=== PATIENT | female | born 1965 | race Caucasian/White ===

== ENCOUNTER 2023-11-17 00:55 | Inpatient (IN) | payer BC, SELFPAY ==
[2023-11-17] VITALS (15 sets, daily range): BP systolic 107–161; BP diastolic 56–87; PULSE 59–80; RESP 16–20; TEMP 36.1–36.8; O2SAT 96–100; BMI 27.5; BMI 27.8
[2023-11-17 01:12] LABS: Appearance Urine Clear (Clear); Bilirubin Urine Negative (Negative); Blood Urine Trace-intact (Negative); Color Urine Yellow (Yellow); Glucose Urine Negative (Negative); Ketones Urine Negative (Negative); Leukocyte Esterase Urine 1+ (Negative); Nitrite Urine Negative (Negative); Protein Urine Negative (Negative); Specific Gravity Urine 1.025 (1.000-1.030); Urobilinogen Urine 0.2 (0.2-1.0)
[2023-11-17 01:20] LABS: Bacteria Urine Few; Squamous Epithelial Cell Urine Few (None-Few)
--- NOTE | 2023-11-17 01:25 | CRLHL7_ITS ---
For Patients: As a result of the Century Cures Act, medical imaging exams and procedure reports are released immediately into your electronic medical record. You may view this report before your referring provider. If you have questions, please contact your health care provider. INDICATION: Left flank pain. TECHNIQUE: CT abdomen and pelvis without contrast. COMPARISON: None. FINDINGS: Lower chest: Unremarkable. Liver: Normal in size and attenuation. No suspicious masses. Gallbladder and bile ducts: No stones or inflammation. No biliary dilatation. Pancreas: Mild inflammatory stranding about the body and tail of the pancreas. Spleen: Normal in size. No masses. Adrenal glands: Normal in size. No nodules. Kidneys: Punctate nonobstructing left nephrolith. No hydronephrosis. GI tract: Unremarkable. Normal in caliber. No sign of mass or inflammation. Normal appendix. Vasculature: Abdominal aorta is normal in caliber. Lymph nodes: No lymphadenopathy. Peritoneum/Abdominal Wall: Unremarkable. No free air or significant free fluid. Pelvis: Unremarkable. No pelvic masses. Bones: Unremarkable for age. IMPRESSION: 1. Mild acute interstitial edematous pancreatitis involving the body and tail of the pancreas. Recommend correlation with amylase and lipase. 2. Punctate nonobstructing left nephrolith. Please note that all CT scans at this facility use dose modulation, iterative reconstruction, and/or weight-based dosing when appropriate to reduce radiation dose to as low as reasonably achievable. Dictated by Pj Steward MD @ 11/17/2023 1:42:20 AM (Electronically Signed)
--- NOTE | 2023-11-17 01:26 | ED_ITS ---
HPI - General Adult General Date Seen: 11/17/23 Chief complaint: Flank Pain Stated complaint: L flank pain Time Seen by Provider: 11/17/23 00:58 Source: patient Mode of arrival: ambulatory Limitations: no limitations History of Present Illness HPI narrative: The patient is a 58-year-old female with no chronic health problems who comes in with 2-3 hours of left upper quadrant abdominal pain. She had eaten some popcorn and some licorice and was watching TV when the pain began. She had no pain earlier in the day. The pain is persisted for several hours and is too severe for her to sleep. No nausea or vomiting. No diarrhea or constipation. No fevers or chills. She has had no recent illness. She does not drink alcohol. She has been told that her lipids were high but she does not recall the numbers in no medication was offered. She has had no previous episodes like this. She does not give a history consistent with biliary colic. No dysuria, urgency, frequency. No hematuria. Related Data Home Medications ?Medication ?Instructions ?Recorded ?Confirmed No Known Home Medications 11/17/23 11/17/23 Allergies Allergy/AdvReac Type Severity Reaction Status Date / Time Penicillins Allergy Mild Hives Verified 11/17/23 01:05 Review of Systems Narrative: Review of systems is outlined above otherwise noted to be negative. [facility] Medical History (Updated 11/17/23 @ 04:20 by Francisco Ingram MD) Vitamin D deficiency ?E55.9 - Vitamin D deficiency, unspecified (ICD-10) Mild intermittent asthma ?J45.20 - Mild intermittent asthma, uncomplicated (ICD-10) Surgical History (Updated 11/17/23 @ 01:39 by Luc Palacio RN) History of colposcopy ?Z98.890 - Other specified postprocedural states (ICD-10) History of colonoscopy ?Z98.890 - Other specified postprocedural states (ICD-10) History of section ?Z98.891 - History of uterine scar from previous surgery (ICD-10) Social History What is your current living situation?: I presently have a place to live Problems where you live: no known problems Problems where you live details: NA In the past 12 months, utilities in danger of being shut off: no In past 12 months, lack of transportation kept you from medical appts, meetings, work, or getting things needed for daily living: no In the past 12 mos, have been you worried that your food would run out before you had money to buy more?: never true In the past 12 mos, the food you bought just didn't last and you didn't have money to buy more?: never true Highest level of school completed/degree received: Bachelor's degree Smoking Status: Never smoker Second hand tobacco smoke exposure: No How often do you have a drink containing alcohol: never AUDIT-C Alcohol total score: 0 Non-prescribed substance use: denies use Caffeine: Yes (1 Cup Coffee per day) How often does anyone, including family, friends and others, physically hurt you : never How often does anyone, including family, friends and others, insult or talk down to you: never How often does anyone, including family, friends and others, threaten you with harm: never How often does anyone, including family, friends and others, scream or curse at you: never service: No Exam Narrative: Exam Narrative: Vitals noted. HEENT: Conjunctiva clear. Neck is supple without adenopathy, thyromegaly, carotid bruit. Lungs: Clear to auscultation in all de leon. No wheezes, rales, rhonchi. Heart: Regular rate and rhythm without murmur. Abdomen: She has epigastric and left upper quadrant tenderness. No guarding, rigidity, rebound. Bowel sounds are normal. No palpable masses. No CVA or suprapubic tenderness. Extremities: No cyanosis or edema. Good distal pulses. Skin: No abnormalities noted of the exposed skin. Neurologic: Awake, alert, fully oriented. Neurologic exam is nonfocal. Const: Vital Signs, click to edit/add: Vital Signs - 24 hr 11/17/23 01:03 11/17/23 02:35 11/17/23 02:45 Temperature 98.0 F 98.0 F Pulse Rate [Right Pulse Oximeter] 78 72 Respiratory Rate 20 20 Blood Pressure [Ri ght Upper Arm] 161/86 H 144/70 H Pulse Oximetry 99 99 99 Oxygen Delivery Me thod Room Air Room Air Course Course ED Course: Patient was seen and examined. Labs and CT of her abdomen and pelvis is ordered. Reevaluation(s) Reevaluation #1: CBC is normal. Basic metabolic panel is normal other than a glucose of 191. She had been eating some licorice. LFTs are normal. Urinalysis shows 2-5 red cells and 5-10 white cells and few bacteria. Lipase is 6766. CT scan of the abdomen and pelvis shows an edematous pancreas but is otherwise unremarkable. Reevaluation #2: IV is established and the patient was offered morphine for pain control but declines at this time. Maintenance normal saline is started. I spoke with Dr. Marin from [facility] who kindly agrees to admit her to the hospital for further evaluation and cares. Vital Signs Vital signs: Initial Vital Signs Temperature 98.0 F 11/17/23 01:03 Temperature Source Temporal Artery Scan 11/17/23 01:03 Pulse Rate 78 11/17/23 01:03 Respiratory Rate 20 11/17/23 01:03 Blood Pressure 161/86 H 11/17/23 01:03 Blood Pressure Mean 111 H 11/17/23 01:03 Blood Pressure Position Sitting 11/17/23 01:03 Pulse Oximetry 99 11/17/23 01:03 Oxygen Delivery Method Room Air 11/17/23 01:03 Vital Signs Temperature 98.0 F 11/17/23 01:03 Pulse Rate 78 11/17/23 01:03 Respiratory Rate 20 11/17/23 01:03 Blood Pressure 161/86 H 11/17/23 01:03 Pulse Oximetry 99 11/17/23 01:03 Oxygen Delivery Method Room Air 11/17/23 01:03 Temperature 97.8 F 11/17/23 03:04 Pulse Rate 74 11/17/23 03:04 Respiratory Rate 16 11/17/23 03:15 Blood Pressure 143/76 H 11/17/23 03:04 Pulse Oximetry 100 11/17/23 03:15 Oxygen Delivery Method Room Air 11/17/23 03:15 Medical Decision Making Lab Data Labs: Lab Results 11/17/23 11/17/23 Range/Units 01:05 01:35 WBC 10.45 (4.50-11.00) K/uL RBC 4.36 (4.00-5.20) m/uL Hgb 13.2 (12.0-16.0) gm/dL Hct 40.3 (33.0-51.0) % MCV 92 (80-100) fL MCH 30 (26-34) pg MCHC 33 (32-36) gm/dL RDW Coeff of Rosemarie 12.3 (11.5-15.5) % Plt Count 208 (140-440) K/uL Neut % (Auto) 75.7 H (42.0-72.0) % Lymph % (Auto) 17.4 L (20-44) % [place] % (Auto) 3.7 (0.0-11.0) % Eos % (Auto) 2.7 (0.0-7.0) % Baso % (Auto) 0.3 (0.0-3.0) % Neut # (Auto) 7.90 H (1.7-7.0) K/uL Lymph # (Auto) 1.80 (0.90-2.90) K/uL [place] # (Auto) 0.40 (0.00-0.90) K/UL Eos # (Auto) 0.28 (0.00-0.50) K/uL Baso # (Auto) 0.03 (0.00-0.30) K/uL Abs Immat Gran (auto) 0.02 (0.00-0.30) K/uL Imm/Tot Granulo (auto) 0.2 % Sodium 139 (135-149) mmol/L Potassium 3.9 (3.6-5.1) mmol/L Chloride 104 (96-114) mmol/L Carbon Dioxide 27 (20-32) mmol/L Anion Gap 8 (7-15) mEq/L BUN 16 (7-30) mg/dL Creatinine 0.6 (0.5-1.5) mg/dL Estimated Creat Clear 86.10 Estimated GFR 103 ml/min Glucose 191 H (60-115) mg/dL Calcium 9.0 (8.4-10.6) mg/dL Total Bilirubin 0.3 (0.1-1.5) mg/dL AST 27 (12-35) U/L ALT 24 (4-35) U/L Alkaline Phosphatase 95 (40-150) U/L Total Protein 7.1 (6.0-8.3) g/dL Albumin 4.5 (3.3-5.0) g/dL Lipase 6766 H (23-300) U/L Urine Color Yellow (Yellow) Urine Appearance Clear (Clear) Urine pH 7.0 (5.0-8.5) Ur Specific [place] 1.025 (1.000-1.030) Urine Protein Negative (Negative) Urine Glucose (UA) Negative (Negative) Urine Ketones Negative (Negative) Urine Blood Trace-intact A (Negative) Urine Nitrite Negative (Negative) Urine Bilirubin Negative (Negative) Urine Urobilinogen 0.2 (0.2-1.0) Ur Leukocyte Esterase 1+ A (Negative) Urine RBC 2-5 A (0-2) Urine WBC 5-10 A (0-5) Ur Squamous Epith Cells Few (None-Few) Urine Bacteria Few A (None) Discharge Plan Discharge Clinical Impression: Acute pancreatitis Patient Disposition: Admitted As Inpatient Condition: Stable
[2023-11-17 01:44] LABS: Basophils Absolute Auto 0.03 K/uL (0.00-0.30); Basophils Percent Auto 0.3 % (0.0-3.0); Eosinophils Absolute Auto 0.28 K/uL (0.00-0.50); Eosinophils Percent Auto 2.7 % (0.0-7.0); Hematocrit 40.3 % (33.0-51.0); Hemoglobin* 13.2 gm/dL (12.0-16.0); Immature Granulocytes Abs Auto 0.02 K/uL (0.00-0.30); Immature Granulocytes Pct Auto 0.2 %; Lymphocytes Percent Auto 17.4 % (20-44); Mean Corpuscular HGB Conc 33 gm/dL (32-36); Mean Corpuscular Hemoglobin 30 pg (26-34); Mean Corpuscular Volume 92 fL (80-100); Monocytes Percent Auto 3.7 % (0.0-11.0); Neutrophils Percent Auto 75.7 % (42.0-72.0); Platelet Count* 208 K/uL (140-440); RDW Coefficient of Variation % 12.3 % (11.5-15.5); Red Blood Count 4.36 m/uL (4.00-5.20); White Blood Count* 10.45 K/uL (4.50-11.00)
[2023-11-17 01:45] LABS: Slide Review Reflex No
--- OUTSIDE RECORDS SUMMARY | 2023-11-17 01:49 | XMS_ITS | Clinical Summary ---
Author Organization [employer] [facility] [employer] [employer] [facility] Address [place], [place] [address] Care Team Providers Care Reconditioning Associate Name Role Phone Oly Rios MD Primary Care Provider [phone] Allergies Active Allergy Reactions Criticality Noted Date Comments Codeine Hives Penicillins Rash As a child Medications Medication Sig Dispensed Refills Start Date End Date Status methylPREDNISolone (MedroL) 4 mg tabletIndications:Acu te non-recurrent maxillary sinusitis,Seasonal allergic rhinitis due to other allergic trigger,Wheezing Take as directed. 21 Tablet 08/28/2021 Active azithromycin (ZITHROMAX) 250 mg tabletIndications:Acu te non-recurrent maxillary sinusitis Take 500 mg (2 tabs) by mouth on day 1, then 250 mg (1 tab) daily for days 2-5. 6 Tablet 08/28/2021 Active albuterol HFA (PRO-AIR; VENTOLIN; PROVENTIL) 90 mcg/actuation inhalerIndications:Mi ld intermittent asthma without complication Inhale 2 Puffs by mouth every 4 hours if needed for Shortness Of Breath or Wheezing. 2 Each 3 09/09/2022 Active Active Problems Problem Noted Date Diagnosed Date Routine adult health maintenance 09/11/2015 Overview: Colonoscopy 08/2015 normal repeat in 10 years Vitamin D deficiency 02/17/2011 Unspecified asthma(493.90) Resolved Problems Problem Noted Date Diagnosed Date Resolved Date Menorrhagia 02/17/2011 08/28/2015 Adjustment disorder with mix ed anxiety and depressed mood 12/20/2009 08/28/2015 Immunizations Name Administration Dates Next Due AMB Influenza, IIV3 (Age >=3 years)(Flu Clinic Only) 02/05/2011,01/27/2010 AMB Influenza, IIV4 PF (=>6 mos Flulaval,Fluzone Fluarix)(Flu Clinic Only) 03/08/2014 Influenza RIV4 (Age 18+ Year s) PRESERV FREE 12/27/2018 Influenza, IIV3 (Age 6-35 mos) 12/28/2017,2010,03/07/2009 Influenza, IIV3 (Age >=3 years) 12/12/19 13,04/11/2012,01/27/2010, 009,03/11/2006 Influenza, IIV4 01/16/2021, 0,02/15/2017, 016,01/01/2015,03/08/2014 MMR 10/16/2014,08/22/2014 Td (Age >=7 Years) 03/28/1996 Tdap 05/29/2009 Tuberculin (PPD) 12/11/2019 Zoster (Shingrix-RZV, recombinant) 06/26/2021, Family History Medical History Relation Name Comments Dementia Father Diabetes Father Cancer-colon Maternal Grandmother Cancer-breast Mother diagnosed age 69 Hyperlipidemia Mother Hypertension Mother Thyroid Disease Mother hypothyroid Other Other heart disease g randparents Cancer Paternal Grandmother melanom a Good Health Sister Relation Name Status Comments Father Maternal Grandmother Mother Other Paternal Grandmother Sister Social History Tobacco Use Types Packs/Day Years Used Date Smoking Tobacco: Never Smokeless Tobacco: Never Tobacco Cessation:Counseling Given: Yes Alcohol Use Standard Drinks/Week Comments Yes 0.8 (1 standard drink = 0.6 oz p ure alcohol) Occasional wine PHQ-2 Answer Date Recorded PHQ-2 Score 0 04/20/2019 Social Connections Answer Date Recorded Frequency of Communication with Friends and Fami ly Not on file 06/26/2021 Financial Resource Strain Answer Date R ecorded Difficulty of Paying Living Expenses Not on file 03/28/2021 Difficulty of Paying Living Expenses Not on file 03/28/2021 Sex and Gender Information Value Date Recorded Sex Assigned at Female 09/08/2022 5:57 PM CDT Gender Identity Female 09/08/2022 5:57 PM CDT Sexual Orientation Straight 09/08/2022 5: 57 PM CDT Obstetrics History Para Term AB IAB SAB Ectopic Multiple Livin g Live Births 4 3 3 Date Outcome GA Total Labor Labor/2nd/3rd Weight Sex Type Anes PTL Ariadne A1 A5 Name Clin Term Term Term Last Filed Vital Signs Vital Sign Reading Time Taken Comments Blood Pressure 154/86 08/28/2021 1:54 PM CDT Pulse 97 08/28/2021 1:54 PM CDT Temperature 37.1 ??C (98.7 ??F) 08/28/2021 1:54 PM CD T Respiratory Rate 20 08/28/2021 1:54 PM CDT Oxygen Saturation 96% 08/28/2021 1:54 PM CDT Inhaled Oxygen Concentration - - Weight 74.8 kg (165 lb) 08/28/2021 1:54 PM CDT Height 162 cm (5' 3.78) 06/26/2021 9:44 AM CDT Body Mass Index 28.52 06/26/2021 9:44 AM CDT Plan of Treatment Health Maintenance Due Date Last Done Comments HIV for age 15-65 09/25/1978 Tetanus booster 05/30/2019 05/29/2009, 03/28/1996 Depression screening for age 12+ 04/20/2020 04/20/2019, 03/03/2017, 09/15/2015 BMI (ht and wt on same day) for age 18+ 06/26/2022 06/26/2021, 05/29/2019, 04/20/2019, Additional history exists Influenza for age 50-64 11/27/2023 01/17/20 21, 12/11/2019, 12/27/2018, Additional history exists Pap test for age 21-65 04/20/2024 0, 04/20/2019, 08/28/2015, Additional history exists Mammogram for age 45-75 05/24/2024 05/24/19 24, 04/21/2022, 02/05/2021, Additional history exists Colonoscopy through age 75 09/10/2025 09/11/2015, Lipids for age 45-75 06/26/2026 06/26/2021, 04/20/2019, 08/28/2015, Additional history exists Tdap Completed 05/29/2009 Hepatitis C screening for age 18-79 Completed 04/20/2019 Zoster (shingles) series for age 50+ Completed 06/26/2021, 04/20/2019 COVID-19 vaccine series Completed 12/31/19 23, 02/02/2022, 01/26/2021, Additional history exists Pneumococcal series for age 6-64 Aged Out No longer eligible based on patient's age to complete this topic Procedures Procedure Name Priority Date/Time Associated Diagnosis Comments XR MAMMO JOEL BILAT SCREEN Routine 05/24/2023 9:15 AM [employer]GER [employer] IN[employer] Visit for screening mammogram LIPID PANEL W REFLEX MEASURED LDL Routine 06/26/2021 10:50 AM CDT Hyperlipidemia, unspecified hyperlipidemia type ANTI HCV Routine 04/20/2019 11:09 AM [employer]NAGER OF INVESTIGATIONS Encounter for hepatitis C screening test for low risk patient RETAIL OFFICE ASSOCIATE THIN PREP PAP SCREEN IMAGED Routine 04/20/2019 10:49 AM [employer]NAGER [employer] INVESTIGATIONS Cervical cancer screening from Last 3 Months or Most Recently Relevant to Health Maintenance Results * XR MAMMO JOEL BILAT SCREEN (05/24/2023 9:15 AM [employer]NAGER OF INVESTIGATIONS) Anatomical Region Laterality Modality BREASTS, Breast Left, Breast Right Bilateral Mammography Impressions 05/24/2023 10:31 AM [employer]NAGER OF INVESTIGATIONS ??There is no radiographic evidence for malignancy. ??Recommend annual mammograms. MAMMOGRAM ASSESSMENT: ??ACR 1 Negative PATIENTS: You will also receive a letter with your examination results in an easy to read format. ??If you have questions about your results, please contact your referring provider. Narrative 05/24/2023 10:31 AM MANAGER OF INVESTIGATIONS For Patients: As a result of the Century Cures Act, medical imaging exams and procedure reports are released immediately into your electronic medical record. You may view this report before your referring provider. If you have questions, please contact your health care provider. XR MAMMO JOEL BILAT SCREEN [[id number]] CLINICAL HISTORY: ??This is an asymptomatic 57 y.o. patient. INDICATION FOR EXAM: Mammogram Screening. TECHNIQUE: CC & MLO views were obtained. ??This study was evaluated with the assistance of Computer-Aided Detection. Breast Tomosynthesis was used in interpretation. COMPARISON FILM: Yes 04/21/22 [facility] 02/05/21 [facility] FINDINGS: ??The breasts have scattered areas of fibroglandular density. There are no dominant masses, suspicious micro calcifications or areas of architectural distortion. Oly Rios MD MAMMO * (ABNORMAL) LIPID PANEL W REFLEX MEASURED LDL (06/26/2021 10:50 AM CDT) CHOLESTEROL,TOTAL 256(H) 100 - 199 mg/dL 06/26/2021 5:46 PM CDT [facility] TRIGLYCERIDES 162(H) <150 mg/dL 06/26/2021 5:46 PM CDT [facility] HDL CHOLESTEROL 51 >40 mg/dL 5:46 PM CDT [facility] NON-HDL CHOLESTEROL 205(H) <145 mg/dl 06/26/2021 5:46 PM CDT [facility] CHOL/HDL RATIO 5.02(H) <4.50 06/26/2021 5:46 PM CDT [facility] LDL CHOLESTEROL 173(H) <=130 mg/dL 06/26/2021 5:46 PM CDT [facility] VLDL CHOLESTEROL 32(H) <=30 mg/dL 06/26/2021 5:46 PM CDT [facility] PROVIDER ORDERED STATUS RANDOM 06/26/2021 5:46 PM CDT [facility] Blood BLOOD SPECIMEN / Unknown Venipuncture / Unknown 06/26/2021 10:50 AM CDT 06/26/2021 10:54 AM CDT Oly Rios MD CHEMISTRY [facility] [address] [place] [address], [place] * ANTI HCV (04/20/2019 11:09 AM MANAGER OF INVESTIGATIONS) HEPATITIS C ANTIBODY Non-React sadia Non-React sadia 04/20/2019 4:36 PM MANAGER OF INVESTIGATIONS [facility] Comment:Antibodies to HCV no t detected; does not exclude the possibility of exposure to HCV. Blood BLOOD SPECIMEN / Unknown Venipuncture / Unknown 04/20/2019 11:09 AM MANAGER OF INVESTIGATIONS 04/20/2019 11:09 AM MANAGER OF INVESTIGATIONS Oly Rios MD SEND OUTS [facility] [address] [place] [address], * RETAIL OFFICE ASSOCIATE THIN PREP PAP SCREEN IMAGED (04/20/2019 10:49 AM MANAGER OF INVESTIGATIONS) Case Report Gynecologic Cytology Report ? Case: [id number] ? Authorizing Provider: ??Oly Rios MD ? Collected: ? 04/20/2019 1049 ? Ordering Location: ? [facility] ?? Received: ?04/20/2019 1111 ? Clinic ? First Screen: ?Sarah Fink ? Rescreen: ?Patito Menjivar ? Specimen: ?RETAIL OFFICE ASSOCIATE ThinPrep Vial Screening, Cervical ? 05/07/2019 10:32 AM [facility] [email or web address] LABORAT[facility] ENTRAL LABORATORY INTERPRETATION/ RESULT NEGATIVE FOR INTRAEPITHELIAL LESION OR MALIGNANCY (NIL) (none) 05/07/2019 10:32 AM [facility] [employer] [facility] IMEN ADEQUACY Satisfactory for evaluation Endocervical component present 05/07/2019 10:32 AM [email or web address] HPV REQUEST HPV and PAP 05/07/2019 10:32 AM [email or web address] Date of LMP 2014 05/07/2019 10:32 AM [email or web address] Last Pap Date 08/28/15 05/07/2019 10:32 AM [facility] [employer] [facility] ENTRAL LAB[facility]ATORY Last Pap Result NIL 0 10:32 AM [facility] [employer] [facility] EN[facility]AL [facility]ORY Abnormal Pap or [place] Bx in last 5 years No 05/07/2019 10:32 AM MANAGER OF INVESTIGATIONS [facility] [employer] [facility] Menstrual Status Postmenopausal 05/07/2019 10:32 AM [facility] [employer] [facility] ENTRAL [facility]ORY [place] Bx Done Today No 05/07/2019 10:32 AM [facility] [employer] [facility] EN[facility] Additional Information None given 05/07/2019 10:32 AM [facility] [employer] [facility] EN[facility] Comment: Cytology is screened at [employer] [facility] Central Laboratory - [address], [place] [address] and [facility] - [address], [place] [address] and [facility] - [address] [place] [address] Interpreted at [facility] Central Laboratory - [address], [place] [address] Automated Review Successful 05/07/2019 10:32 AM [facility]- [facility]AT[facility] Comment:Specimen processed s uccessfully by automated home supervisor device, [employer] Imaging System, [employer] ANCILLARY TESTING RETAIL OFFICE ASSOCIATE HPV Ordered, Please see separate report 05/07/2019 10:[address] [facility] Note The pap test is a screening technique, not a diagnostic procedure. It is used primarily to screen for squamous cancers and precursor lesions. Published studies have shown that it is subject to both false negative and false positive results. The pap test should not be used as the sole means to diagnose or exclude pre-malignant and malignant lesions. 05/07/2019 10:32 AM [facility] Other (Cervical) Non-Blood / Unknown 04/20/2019 10:49 AM MANAGER OF INVESTIGATIONS 04/20/2019 11:11 AM MANAGER OF INVESTIGATIONS Oly Rios MD PATHOLOGY/CYTOLOGY [facility] [address] [place] [address], [place] from Last 3 Months or Most Recently Relevant to Health Maintenance Care Teams Reconditioning Associate Relationship Specialty Start Date End Date Oly Rios MD [address] [place] [id number] PCP - General Family Practice 04/20/19
[2023-11-17 01:55] LABS: Albumin* 4.5 g/dL (3.3-5.0); Chloride* 104 mmol/L (96-114)
[2023-11-17 01:56] LABS: Potassium* 3.9 mmol/L (3.6-5.1); Sodium* 139 mmol/L (135-149)
[2023-11-17 01:58] LABS: Alkaline Phosphatase* 95 U/L (40-150); Anion Gap 8 mEq/L (7-15); Aspartate Amino Transferase* 27 U/L (12-35); Bilirubin Total* 0.3 mg/dL (0.1-1.5); Blood Urea Nitrogen* 16 mg/dL (7-30); Carbon Dioxide* 27 mmol/L (20-32); Creatinine* 0.6 mg/dL (0.5-1.5); Estimated Glomerular Filt Rate 103 ml/min; Total Protein* 7.1 g/dL (6.0-8.3)
[2023-11-17 01:59] LABS: Alanine Aminotransferase* 24 U/L (4-35); Glucose* 191 mg/dL (60-115)
[2023-11-17 02:20] LABS: Lipase* 6766 U/L (23-300)
--- NOTE | 2023-11-17 04:10 | W.PM.THH&P_ITS ---
Telehealth- H&P: HPI History of Present Illness Time Seen by Provider: 03:38 Date Seen: 11/17/23 Chief complaint: L flank pain Narrative: Oly Topete is seen as an Interactive Telehealth visit. 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 It radiates somewhat into her back. She felt queasy but had no vomiting. The pain progressed and till she reached her limits of tolerance and she presented to the [place] emergency room. She has had no prior episodes similarly. She has had no abdominal surgeries. She does not drink alcohol to any extent. There is no family history of pancreatitis. No history suggest biliary colic. She has had no change in her bowel habits. Is been no fevers or chills. In the emergency room she was discovered to have pancreatitis by biochemical analysis as well as by CT scan. She is being ad mitted for treatment and symptomatic control. Review of Systems Status of ROS: Reports: 10 or more systems reviewed and unremarkable except as noted in History and below PFSH [facility] Medical History (Updated 11/17/23 @ 04:20 by Francisco Ingram MD) Vitamin D deficiency ?E55.9 - Vitamin D deficiency, unspecified (ICD-10) Mild intermittent asthma ?J45.20 - Mild intermittent asthma, uncomplicated (ICD-10) Surgical History (Updated 11/17/23 @ 01:39 by Luc Palacio RN) History of colposcopy ?Z98.890 - Other specified postprocedural states (ICD-10) History of colonoscopy ?Z98.890 - Other specified postprocedural states (ICD-10) History of section ?Z98.891 - History of uterine scar from previous surgery (ICD-10) Social History What is your current living situation?: I presently have a place to live Problems where you live: no known problems Problems where you live details: NA In the past 12 months, utilities in danger of being shut off: no In past 12 months, lack of transportation kept you from medical appts, meetings, work, or getting things needed for daily living: no In the past 12 mos, have been you worried that your food would run out before you had money to buy more?: never true In the past 12 mos, the food you bought just didn't last and you didn't have money to buy more?: never true Highest level of school completed/degree received: Bachelor's degree Smoking Status: Never smoker Second hand tobacco smoke exposure: No How often do you have a drink containing alcohol: never AUDIT-C Alcohol total score: 0 Non-prescribed substance use: denies use Caffeine: Yes (1 Cup Coffee per day) How often does anyone, including family, friends and others, physically hurt you : never How often does anyone, including family, friends and others, insult or talk down to you: never How often does anyone, including family, friends and others, threaten you with harm: never How often does anyone, including family, friends and others, scream or curse at you: never service: No Meds Home Medications and Allergies Home Medications ?Medication ?Instructions ?Recorded ?Confirmed ?Type No Known Home Medications 11/17/23 11/17/23 History Allergies Allergy/AdvReac Type Severity Reaction Status Date / Time Penicillins Allergy Mild Hives Verified 11/17/23 01:05 Exam Narrative Exam Narrative: Physical Exam GENERAL: ?vital signs reviewed, well developed and nourished, in no distress HEENT: pupils are equal round and reactive to light, extraocular movements are grossly within normal limits and oral mucosa is moist.Sclera nonicteric NECK: Supple without lymphadenopathy or thyromegaly according to nursing staff examination observation HEART: Regular rate and rhythm without any rubs, murmurs, or gallops. LUNGS: Clear to auscultation bilaterally with good air movement throughout ABDOMEN: Observation from nurse assisted exam, abdomen appears soft, Normal bowel sounds. She has mild tenderness without rebound predominantly in the left upper quadrant EXTREMITIES: Strength and sensation is observed to be grossly within normal limits in the upper and lower extremities.? No focal strength deficit is observed. SKIN:? Observed warm and dry with color normal Const Vital Signs, click to edit/add: Vital Signs - 24 hr 11/17/23 01:03 11/17/23 02:35 11/17/23 02:45 Temperature 98.0 F 98.0 F Pulse Rate [Left Radial] Pulse Rate [Right Pulse Oximeter] 78 72 Respiratory Rate 20 20 Blood Pressure [Left Arm] Blood Pressure [Right Upper Arm] 161/86 H 144/70 H Pulse Oximetry 99 99 99 Oxygen Delivery Method Room Air Room Air 11/17/23 02:47 11/17/23 03:02 11/17/23 03:04 Temperature 98.0 F 97.8 F 97.8 F Pulse Rate [Left Radial] 74 74 Pulse Rate [Right Pulse Oximeter] 72 Respiratory Rate 20 16 16 Blood Pressure [Left Arm] 143/76 H 143/76 H Blood Pressure [Right Upper Arm] 144/70 H Pulse Oximetry 100 100 Oxygen Delivery Method Room Air Room Air 11/17/23 03:15 Temperature Pulse Rate [Left Radial] Pulse Rate [Right Pulse Oximeter] Respiratory Rate 16 Blood Pressure [Left Arm] Blood Pressure [Right Upper Arm] Pulse Oximetry 100 Oxygen Delivery Method Room Air Hospitalist - H&P: Result Labs Labs: Short CBC 11/17/23 Range/Units 01:35 WBC 10.45 (4.50-11.00) K/uL Hgb 13.2 (12.0-16.0) gm/dL Hct 40.3 (33.0-51.0) % Plt Count 208 (140-440) K/uL [facility] Laboratory Results - last 24 hr 11/17/23 11/17/23 01:05 01:35 WBC 10.45 RBC 4.36 Hgb 13.2 Hct 40.3 MCV 92 MCH 30 MCHC 33 RDW Coeff of Rosemarie 12.3 Plt Count 208 Neut % (Auto) 75.7 H Lymph % (Auto) 17.4 L [place] % (Auto) 3.7 Eos % (Auto) 2.7 Baso % (Auto) 0.3 Neut # (Auto) 7.90 H Lymph # (Auto) 1.80 [place] # (Auto) 0.40 Eos # (Auto) 0.28 Baso # (Auto) 0.03 Abs Immat Gran (auto) 0.02 Imm/Tot Granulo (auto) 0.2 Sodium 139 Potassium 3.9 Chloride 104 Carbon Dioxide 27 Anion Gap 8 BUN 16 Creatinine 0.6 Estimated Creat Clear 86.10 Estimated GFR 103 Glucose 191 H Calcium 9.0 Total Bilirubin 0.3 AST 27 ALT 24 Alkaline Phosphatase 95 Total Protein 7.1 Albumin 4.5 Lipase 6766 H Urine Color Yellow Urine Appearance Clear Urine pH 7.0 Ur Specific [place] 1.025 Urine Protein Negative Urine Glucose (UA) Negative Urine Ketones Negative Urine Blood Trace-intact A Urine Nitrite Negative Urine Bilirubin Negative Urine Urobilinogen 0.2 Ur Leukocyte Esterase 1+ A Urine RBC 2-5 A Urine WBC 5-10 A Ur Squamous Epith Cells Few Urine Bacteria Few A Imaging CT scan - abdomen: Radiologist's impression: CT abd pelvis IMPRESSION: 1. Mild acute interstitial edematous pancreatitis involving the body and tail of the pancreas. Recommend correlation with amylase and lipase. 2. Punctate nonobstructing left nephrolith. Please note that all CT scans at this facility use dose modulation, iterative reconstruction, and/or weight-based dosing when appropriate to reduce radiation dose to as low as reasonably achievable. Assessment and Plan Assessment and plan (1) Acute pancreatitis: Status: Acute Plan 58-year-old woman who presents with 6 hours of abdominal pain radiating to the back with some mild queasiness no fevers or chills. Laboratory data is remarkable for elevated lipase and CT imaging showed mild inflammatory changes of the pancreas. Etiology is unclear. She has no history or evidence of any biliary disease at this time however biliary micro sludge could need to be considered. Less common causes like autoimmune pancreatitis could be considered or hypertriglyceridemia. I think she warrants a triglyceride level done as an outpatient in a fasting state after the acute disease has resolved. Plan will be to admit her and keep her n.p.o. except water and use IV hydration treat her symptomatically with IV acetaminophen IV low-dose morphine and ondansetron. CODE STATUS is full. DVT prophylaxis will be enoxaparin. Total Time Spent Total Time Spent: 65 Telehealth: Statement Statement Telehealth Visit: Today's History and Physical is provided via interactive telehealth by Juvenal Del Cid MD.? Patient is located at [facility].? Provider is located at [employer].? Nursing staff assisted with the patient's exam. The visit being done today meets criteria for a telehealth visit and the patient or patient?s parent/guardian is aware the visit is a telehealth visit. Camera Start Time: 03:38 Camera End Time: 04:07
[2023-11-17] MEDS: 0.9 % SODIUM CHLORIDE 1000 ml 1,000 ML 125 ML IV (04:40)
[2023-11-17] MEDS: ONDANSETRON 2 MG/ML inj 4 MG IVP (04:40)
[2023-11-17] MEDS: ACETAMINOPHEN INJ 1,000 MG/100 ML VIAL 400 MG IVPB (04:51)
[2023-11-17] MEDS: MORPHINE 2 MG/ML inj IVP (04:55)
[2023-11-17] MEDS: LACTATED RINGERS 1000 ML 1,000 ML 150 ML IV ×3 (05:01→18:03)
--- NOTE | 2023-11-17 05:35 | PC.NURSE ---
Pt came to floor @ 0245 accompanied by . Reporting left flank pain. Up IND. Pain controlled. No N/V. Afebrile.
--- NOTE | 2023-11-17 10:59 | PM.IMPN1 ---
Progress Note: A&P Assessment and plan (1) Acute pancreatitis: Problem details: -etiology unclear; likely idiopathic -no recent alcohol, no obvious gallbladder inflammation, mass, medications, etc. -repeat labs, advance diet, pain and nausea control -at this time holding on further imaging and follow clinical course -adding IV Toradol, oral oxy and one dose of IV PPI Status: Acute Subjective Date Seen: 11/17/23 Interval history: Daily Progress Note - Hospital #: 1 CC: acute pancreatitis 24 HOUR UPDATE: pt just got to the floor 3-4 hours ago. H/P reviewed. This is a no charge visit as it is admit day. Notable Labs, Micro, Rads, Interventions: documentation reviewed Objective: calm, NAD Vitals: see above abdomen: soft. mild upper LUQ pain to palpation. Lungs: Clear. Cardiac: S1S2. Disposition/Potential discharge - Home Today I spent 50minutes seeing the patient, reviewing Expanse and EPIC notes/diagnostics, discussing the care plan with our care time that includes social work, PT/OT, pharmacy, RT, halfway and documenting my impressions and plan in the medical record. Exam Const: Vital Signs, click to edit/add: Vital Signs - 24 hr 11/17/23 01:03 11/17/23 02:35 11/17/23 02:45 Temperature 98.0 F 98.0 F Pulse Rate [Left R adial] Pulse Rate [Right Pulse Oximeter] 78 72 Respiratory Rate 20 20 Blood Pressure [Le ft Arm] Blood Pressure [Ri ght Upper Arm] 161/86 H 144/70 H Pulse Oximetry 99 99 99 Oxygen Delivery Me thod Room Air Room Air 11/17/23 02:47 11/17/23 03:02 11/17/23 03:04 Temperature 98.0 F 97.8 F 97.8 F Pulse Rate [Left R adial] 74 74 Pulse Rate [Right Pulse Oximeter] 72 Respiratory Rate 20 16 16 Blood Pressure [Le ft Arm] 143/76 H 143/76 H Blood Pressure [Ri ght Upper Arm] 144/70 H Pulse Oximetry 100 100 Oxygen Delivery Ms thod Room Air Room Air 11/17/23 03:15 11/17/23 04:51 11/17/23 05:22 Temperature 97.8 F 97.8 F Pulse Rate [Left R adial] Pulse Rate [Right Pulse Oximeter] Respiratory Rate 16 Blood Pressure [Le ft Arm] Blood Pressure [Ri ght Upper Arm] Pulse Oximetry 100 Oxygen Delivery Me thod Room Air 11/17/23 08:15 Temperature Pulse Rate [Left R adial] 74 Pulse Rate [Right Pulse Oximeter] Respiratory Rate 16 Blood Pressure [Le ft Arm] Blood Pressure [Ri ght Upper Arm] Pulse Oximetry Oxygen Delivery Me thod Labs Labs: Laboratory Results - last 24 hr 11/17/23 11/17/23 01:05 01:35 WBC 10.45 RBC 4.36 Hgb 13.2 Hct 40.3 MCV 92 MCH 30 MCHC 33 RDW Coeff of Rosemarie 12.3 Plt Count 208 Neut % (Auto) 75.7 H Lymph % (Auto) 17.4 L [place] % (Auto) 3.7 Eos % (Auto) 2.7 Baso % (Auto) 0.3 Neut # (Auto) 7.90 H Lymph # (Auto) 1.80 [place] # (Auto) 0.40 Eos # (Auto) 0.28 Baso # (Auto) 0.03 Abs Immat Gran (auto) 0.02 Imm/Tot Granulo (auto) 0.2 Sodium 139 Potassium 3.9 Chloride 104 Carbon Dioxide 27 Anion Gap 8 BUN 16 Creatinine 0.6 Estimated Creat Clear 86.10 Estimated GFR 103 Glucose 191 H Calcium 9.0 Total Bilirubin 0.3 AST 27 ALT 24 Alkaline Phosphatase 95 Total Protein 7.1 Albumin 4.5 Lipase 6766 H Urine Color Yellow Urine Appearance Clear Urine pH 7.0 Ur Specific [place] 1.025 Urine Protein Negative Urine Glucose (UA) Negative Urine Ketones Negative Urine Blood Trace-intact A Urine Nitrite Negative Urine Bilirubin Negative Urine Urobilinogen 0.2 Ur Leukocyte Esterase 1+ A Urine RBC 2-5 A Urine WBC 5-10 A Ur Squamous Epith Cells Few Urine Bacteria Few A
[2023-11-17] MEDS: PANTOPRAZOLE SODIUM 40 MG INJ IVP (11:28)
[2023-11-17] MEDS: KETOROLAC 30 MG/ML inj IVP ×2 (11:32→20:38)
[2023-11-17 14:13] LABS: HCO3 VBG 31 mmol/L (21-28); PCO2 VBG 53 mmHG (40-50); PO2 VBG < 30.1 mmHG (25-47)
[2023-11-17 14:33] LABS: Albumin* 3.7 g/dL (3.3-5.0)
[2023-11-17 14:34] LABS: Chloride* 108 mmol/L (96-114); Potassium* 4.4 mmol/L (3.6-5.1); Sodium* 139 mmol/L (135-149)
[2023-11-17 14:36] LABS: Alkaline Phosphatase* 71 U/L (40-150); Anion Gap 1 mEq/L (7-15); Aspartate Amino Transferase* 22 U/L (12-35); Bilirubin Total* 0.6 mg/dL (0.1-1.5); Blood Urea Nitrogen* 11 mg/dL (7-30); Carbon Dioxide* 30 mmol/L (20-32); Creatinine* 0.7 mg/dL (0.5-1.5); Estimated Glomerular Filt Rate 99 ml/min
[2023-11-17 14:37] LABS: Alanine Aminotransferase* 21 U/L (4-35); Calcium* 8.9 mg/dL (8.4-10.6); Cholesterol* 199 mg/dL (90-199); Glucose* 86 mg/dL (60-115); Triglycerides* 167 mg/dL (40-149)
[2023-11-17 14:38] LABS: HDL Cholesterol* 41 mg/dL (>=50); LDL Cholesterol Calculated 125 mg/dL (<100)
[2023-11-17 15:25] LABS: Lipase* 2765 U/L (23-300)
--- NOTE | 2023-11-17 15:46 | PC.NURSE ---
end of shift. pt has been very pleasant. complained of abd pain. 2--08/04. she got IV Toradol. she is up ab kim. IV is patent. she is taking in clears with no problems.
[2023-11-17] MEDS: SODIUM CHLORIDE 0.9 % (FLUSH) 10 ML SYRINGE 5 ML IVF (20:39)
[2023-11-18] MEDS: LACTATED RINGERS 1000 ML 1,000 ML 150 ML IV ×2 (00:13→06:11)
[2023-11-18] MEDS: KETOROLAC 30 MG/ML inj IVP (02:54)
[2023-11-18 03:00] VITALS: BP 117/55; PULSE 70; RESP 18; TEMP 36.3; O2SAT 97
--- NOTE | 2023-11-18 06:17 | PC.NURSE ---
End of shift report [id number]: Alert and oriented x 4, pleasant and cooperative with cares. Pain to epigastric region that spreads laterally to both sides, patient reports it as a heaviness and pressure feeling, does occasionally go into back. Pain well managed with PRN Toradol. Tolerating clear liquid diet, denies any nausea or vomiting this shift. Independent with ambulation, patient out and walking in hallway independently. Patient does report that pain increase when up and walking but does subside with rest. Patient reports that she is passing flatus.
[2023-11-18 06:56] LABS: Hematocrit 36.2 % (33.0-51.0); Hemoglobin* 11.9 gm/dL (12.0-16.0); Mean Corpuscular HGB Conc 33 gm/dL (32-36); Mean Corpuscular Hemoglobin 31 pg (26-34); Mean Corpuscular Volume 93 fL (80-100); Platelet Count* 165 K/uL (140-440); White Blood Count* 8.36 K/uL (4.50-11.00)
[2023-11-18 07:00] VITALS: BP 141/78; PULSE 88; RESP 18; TEMP 37.1; O2SAT 97
[2023-11-18 07:14] LABS: Chloride* 105 mmol/L (96-114)
[2023-11-18 07:15] LABS: Albumin* 3.9 g/dL (3.3-5.0); Potassium* 4.1 mmol/L (3.6-5.1); Sodium* 138 mmol/L (135-149)
[2023-11-18 07:17] LABS: Creatinine* 0.6 mg/dL (0.5-1.5); Estimated Glomerular Filt Rate 103 ml/min
[2023-11-18 07:18] LABS: Alanine Aminotransferase* 19 U/L (4-35); Alkaline Phosphatase* 79 U/L (40-150); Anion Gap 2 mEq/L (7-15); Aspartate Amino Transferase* 24 U/L (12-35); Bilirubin Total* 0.9 mg/dL (0.1-1.5); Blood Urea Nitrogen* 8 mg/dL (7-30); Calcium* 8.9 mg/dL (8.4-10.6); Carbon Dioxide* 31 mmol/L (20-32); Glucose* 108 mg/dL (60-115); Total Protein* 6.3 g/dL (6.0-8.3)
[2023-11-18 07:24] LABS: Slide Review Reflex No
[2023-11-18 07:30] LABS: Lipase* 2012 U/L (23-300)
[2023-11-18] MEDS: ACETAMINOPHEN 325 MG TABLET PO (10:04)
--- NOTE | 2023-11-18 10:29 | NUTR.NU ---
RDN with diet education related to pancreatitis. Patient with a new diagnosis of pancreatitis. Current weight 164 lbs 9.6 oz; height 5ft 4in; BMI 28.3 kg/m2 Current diet is low fat/low cholesterol. No meal intakes yet as patient has not felt comfortable to try anything other than clears at this time. Offered patient diet education related to pancreatitis, she accepted. Patient was provided diet education on a low fat diet. Discussed foods to include and foods to avoid. Education also provided following a low fat diet (about 60 grams/day) long-term. Verbal and written information as well as a sample menu provided from [facility]. Patient verbalized understanding. RDN's contact information was provided and patient was encouraged to contact RDN with questions.
[2023-11-18 11:00] VITALS: BP 137/74; PULSE 83; RESP 18; TEMP 36.8; O2SAT 94
--- NOTE | 2023-11-18 13:59 | PM.DS1 ---
DS: Providers Provider Date Seen: 11/18/23 Date of admission: 11/17/23 04:23 Primary care physician: Oly Rios MD Admitting Clinician: Juvenal Del Cid MD Attending Physician on discharge: Patrick Headley MD Date of Discharge: 11/18/23 DS: Diagnosis Discharge Diagnosis (1) Acute pancreatitis: Status: Acute Problem details: -etiology unclear; likely idiopathic -no recent alcohol, no obvious gallbladder inflammation, mass, medications, etc. Conservative management with IV fluids and IV antiemetics and pain medications. Decline that oral opioids. Tolerating liquid diet today DS: Summary Hospital Course Hospital Course: Oly Topete is seen as an Interactive Telehealth visit. 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 It radiates somewhat into her back. She felt queasy but had no vomiting. The pain progressed and till she reached her limits of tolerance and she presented to the [place] emergency room. She has had no prior episodes similarly. She has had no abdominal surgeries. She does not drink alcohol to any extent. There is no family history of pancreatitis. No history suggest biliary colic. She has had no change in her bowel habits. Is been no fevers or chills. In the emergency room she was discovered to have pancreatitis by biochemical analysis as well as by CT scan. She is being admitted for treatment and symptomatic control. Patient admitted to the hospital for pain management and IV fluids. She cautiously resumed her diet and tolerated this well. No further problems with vomiting. Pain was adequately controlled. Status at Discharge Functional status at discharge: independent ambulation Overall status at discharge: patient is progressing back to baseline Time Spent with Patient Time attestation: Total time spent providing and/or coordinating discharge services: 40 minutes Time spent: Greater than 30 minutes Exam Narrative: Exam Narrative: She is alert and appears in no distress. Breathing is unlabored. Abdomen with bowel sounds present. Abdomen is soft with mild epigastric tenderness. Most prominent just to the left of the midline. No peritonitis. No mass. Const: Vital Signs, click to edit/add: Vital Signs - 24 hr 11/17/23 16:11 11/17/23 19:00 11/17/23 23:00 Temperature 98.3 F 97.4 F L Pulse Rate [Left R adial] 69 70 70 Respiratory Rate 16 16 16 Blood Pressure [Le ft Arm] 153/64 H 113/60 Pulse Oximetry 98 96 Oxygen Delivery Me thod Room Air Room Air 11/17/23 23:00 11/18/23 03:00 11/18/23 07:00 Temperature 97.2 F L 97.4 F L Pulse Rate [Left R adial] 80 70 88 Respiratory Rate 16 18 18 Blood Pressure [Le ft Arm] 117/87 117/55 L Pulse Oximetry 97 97 Oxygen Delivery Me thod Room Air Room Air 11/18/23 07:00 Temperature 98.7 F Pulse Rate [Left R adial] 88 Respiratory Rate 18 Blood Pressure [Le ft Arm] 141/78 H Pulse Oximetry 97 Oxygen Delivery Me thod Room Air DS: Data Data Completed and Pending Labs on day of discharge: Labs from last 24 hours 11/18/23 11/17/23 06:38 14:07 WBC 8.36 RBC 3.90 L Hgb 11.9 L Hct 36.2 MCV 93 MCH 31 MCHC 33 Plt Count 165 VBG pH 7.370 VBG pCO2 53 H VBG pO2 < 30.1 VBG HCO3 31 H Sodium 138 139 Potassium 4.1 4.4 Chloride 105 108 Carbon Dioxide 31 30 Anion Gap 2 L 1 L BUN 8 11 Creatinine 0.6 0.7 Estimated Creat Clear 86.10 73.80 Estimated GFR 103 99 Glucose 108 86 Calcium 8.9 8.9 Total Bilirubin 0.9 0.6 AST 24 22 ALT 19 21 Alkaline Phosphatase 79 71 Total Protein 6.3 6.0 Albumin 3.9 3.7 Triglycerides 167 H Cholesterol 199 LDL Cholesterol, Calc 125 H HDL Cholesterol 41 L Lipase 2012 H 2765 H Preliminary micro results at discharge 11/17/23 01:05 Urine Culture - Preliminary Urine,Clean Catch < 50,000 COL/ML MIXED GRAM POSITIVE ELEN ISOLATED NO FURTHER WORKUP Imaging CT scan - abdomen: Radiologist's impression: INDICATION: Left flank pain. TECHNIQUE: CT abdomen and pelvis without contrast. COMPARISON: None. FINDINGS: Lower chest: Unremarkable. Liver: Normal in size and attenuation. No suspicious masses. Gallbladder and bile ducts: No stones or inflammation. No biliary dilatation. Pancreas: Mild inflammatory stranding about the body and tail of the pancreas. Spleen: Normal in size. No masses. Adrenal glands: Normal in size. No nodules. Kidneys: Punctate nonobstructing left nephrolith. No hydronephrosis. GI tract: Unremarkable. Normal in caliber. No sign of mass or inflammation. Normal appendix. Vasculature: Abdominal aorta is normal in caliber. Lymph nodes: No lymphadenopathy. Peritoneum/Abdominal Wall: Unremarkable. No free air or significant free fluid. Pelvis: Unremarkable. No pelvic masses. Bones: Unremarkable for age. IMPRESSION: 1. Mild acute interstitial edematous pancreatitis involving the body and tail of the pancreas. Recommend correlation with amylase and lipase. 2. Punctate nonobstructing left nephrolith. Discharge Plan Discharge Disposition: Home, Self-Care Date of Admission: 11/17/23 04:23 Attending Provider on Discharge: Efrain Headley Primary Care Provider: Oly Rios Condition: Stable Anticipated Discharge Date/Time: 11/18/23 13:55 Discharge Medications: New ibuprofen 200 mg tablet 400 mg PO Q6H PRNQty: 30 0RF ondansetron 4 mg tablet,disintegrating 4 mg PO Q6H PRN (Reason: nausea and vomiting) Qty: 10 0RF Discharge Orders: Discharge Order (Routine); Ordered 11/18/23 Ordered By: Efrain Headley Additional Instructions: Return to the hospital if uncontrolled pain, nausea or vomiting. Discharge Diet: Regular Diet Detail: Until you feel back to normal avoid fried and fatty foods. Drink plenty of fluids. Avoid alcohol which can cause pancreatitis. Follow Up Appointments: Oly Rios MD [Primary Care Provider] - (1-2 weeks) Forms: [facility] Info Instructions
--- NOTE | 2023-11-18 16:23 | PC.NURSE ---
Discharge Note: Pt friendly and cooperative. Moves independently throughout her room and occasionally ambulates hallway. Initially rated pain 4/10 in epigastric region, describing fullness. Pt also c/o headache. Discussed pain management and pt opted to try PRN Tylenol. She later verbalized effectiveness and stated her pain was markedly improved. Increased clear liquid intake and pt tolerating well. She plans to advance slowly and verbalized understanding of diet instructions/guidelines. Housing Grant Analyst also in to visit patient. Pt was discharged to home in the care of her at 1453. Patient and her verbalized understanding of discharge instructions and follow up appointments.
== END 2023-11-18 14:53 | disposition home or self-care (01) | DRG 282 ==
LOC: ED 01:47 → MEDSURG 02:47
PROVIDERS: Family Medicine; Admitting Provider Internal Medicine; Emergency Provider Family Medicine; PCP Family Medicine; Visit Provider Internal Medicine
DX: K85.00 Idiopathic acute pancreatitis without necrosis or infection (principal); E55.9 Vitamin D deficiency, unspecified; J45.20 Mild intermittent asthma, uncomplicated
CPT/HCPCS: 36415; 74176; 80053; 80061; 81001; 82803; 83690; 85025; 85027; 87086; 94761; 99283; 99285; A9270; J0131; J1885; J2270; J2405; J2470; J7030; J7120

== ENCOUNTER 2023-12-19 19:13 | Inpatient (IN) | payer BC, SELFPAY ==
[2023-12-19 19:16] VITALS: BP 160/75; PULSE 70; RESP 16; TEMP 36.9; O2SAT 96; BMI 26.6
--- NOTE | 2023-12-19 19:41 | ED_ITS ---
HPI - Abdominal Pain General Time Seen by Provider: 19:41 Date Seen: 12/19/23 Chief Complaint: Abdominal Pain Stated Complaint: upper left abdominal pain Time Seen by Provider: 12/19/23 19:26 Source: patient, RN notes reviewed and old records reviewed Mode of arrival: ambulatory Limitations: no limitations History of Present Illness HPI narrative: This 58-year-old female is coming in with left upper quadrant abdominal pain, she states it is just right up under the ribs, radiates into her back. There is nausea with this but no vomiting, no fevers. She has had normal bowel movements. She does feel bloated with this. There is no urinary symptoms but she does note the recent CT that there is maybe a kidney stone seen. She was recently hospitalized with pancreatitis at the end of October. She does not remember getting an ultrasound but states they did not see any abnormalities on her CT of her gallbladder. She did do a follow-up in clinic and had her ch olesterol panel done, there were not significant concerns with the triglycerides per her report. She does not drink alcohol. She has been following a pretty bland diet. She states her only abdominal surgery was a 30 years ago. In review of her chart, she was hospitalized 11/16-11/17 with acute pancreatitis, thought to be idiopathic. She was discharged tolerating orals. Her admission lipase was 6766, discharge was 2011. Her CT of her abdomen pelvis was done on November 16, showed mild acute interstitial edematous pancreatitis involving the body and tail of the pancreas recommend correlation with amylase and lipase. Punctate nonobstructing left nephrolith. Gallbladder and bile ducts were not shown to have any stones or inflammation, no biliary dilatation. Patient's liver functions were completely normal. MD elicited complaint: abdominal pain Related Data Home Medications ?Medication ?Instructions ?Recorded ?Confirmed No Known Home Medications 12/19/23 12/19/23 Allergies Allergy/AdvReac Type Severity Reaction Status Date / Time codeine Allergy Mild Hives Verified 12/19/23 20:39 Penicillins Allergy Mild Hives Verified 12/19/23 20:39 Review of Systems Status of ROS Reports: 6 or more systems reviewed and unremarkable except as noted in History and below [facility] Medical History Vitamin D deficiency ?E55.9 - Vitamin D deficiency, unspecified (ICD-10) Mild intermittent asthma ?J45.20 - Mild intermittent asthma, uncomplicated (ICD-10) Surgical History History of colposcopy ?Z98.890 - Other specified postprocedural states (ICD-10) History of colonoscopy ?Z98.890 - Other specified postprocedural states (ICD-10) History of section ?Z98.891 - History of uterine scar from previous surgery (ICD-10) Social History What is your current living situation?: I presently have a place to live Problems where you live: no known problems Problems where you live details: NA In the past 12 months, utilities in danger of being shut off: no In past 12 months, lack of transportation kept you from medical appts, meetings, work, or getting things needed for daily living: no In the past 12 mos, have been you worried that your food would run out before you had money to buy more?: never true In the past 12 mos, the food you bought just didn't last and you didn't have money to buy more?: never true Highest level of school completed/degree received: Bachelor's degree Smoking Status: Never smoker Do you use any of these nicotine containing products: None Second hand tobacco smoke exposure: No How often do you have a drink containing alcohol: never AUDIT-C Alcohol total score: 0 Non-prescribed substance use: denies use Caffeine: Yes (1 Cup Coffee per day) How often does anyone, including family, friends and others, physically hurt you : never How often does anyone, including family, friends and others, insult or talk down to you: never How often does anyone, including family, friends and others, threaten you with harm: never How often does anyone, including family, friends and others, scream or curse at you: never service: No Exam Const: Vital Signs, click to edit/add: Vital Signs - 24 hr 12/19/23 19:16 12/19/23 21:07 12/19/23 21:48 Temperature 98.4 F Pulse Rate [Pulse Oximeter] 70 64 Respiratory Rate 16 16 Blood Pressure [Ri ght Upper Arm] 160/75 H 131/73 Pulse Oximetry 96 98 99 Oxygen Delivery Me thod Room Air Room Air This 58-year-old female is up in the room somewhat pacing. She is alert, interactive, very pleasant despite that she has some obvious pain. Pupils equal round reactive, sclera clear, symmetrical facial function. Lungs are clear, good air entry, no wheezing or crackles. CV regular rate and rhythm, no murmur, normal S1-S2, no S3-S4. Abdomen indeed does look mildly bloated but she does have normal bowel sounds. She has definite epigastric pain with some guarding but no rebound. Do not feel any organomegaly. There is no associated lower abdominal tenderness, she does not really seem to have any right upper quadrant tenderness over the gallbladder. Skin visualized without rash, no jaundice. Documenting provider has reviewed patient's vital signs: yes Course Course ED Course: Have reviewed with Oly that I do think she should take some IV morphine for comfort, there is no need for her to be miserable. Will initiate IV fluids, 2 mg IV morphine as she tolerated this previous hospitalization, will cover with 4 mg IV Zofran. She will get a full complement of labs including amylase and lipase. Will proceed with CT imaging. Doubtful that this is nephrolithiasis but will be considered, we will see if the stone is still in a same place on her CT. This certainly seems like it is her recurrent pancreatitis to her, was similar to her prior symptoms just not as bad as what she was last time, states she waited longer to come in. Reevaluation(s) Time of Reevaluation #1: 21:03 Reevaluation #1: Patient is feeling better pain sarabia. Reviewed with her that the amylase is elevated, this is pancreatitis. Still awaiting her lipase to come back as well as the CT to be read. Time of Reevaluation #2: 22:07 Reevaluation #2: Have reviewed with patient and her the recommendations by a General surgery. She is in agreement with the plan. She does not feel she needs anything further for pain management at this time. Consultations Consultation #1: Spoke with Dr. Elder our surgeon on-call. She agrees that this patient should have a gallbladder ultrasound. She is fine with ultrasound being done in the morning. There is a possibility that patient might need to go for ERCP and have a transfer but capacity at outside facilities challenging at best currently. Patient does not have a fever, does not have elevated liver enzymes, would not necessitate an emergent ERCP this evening anyway. If gallbladder ultrasound is not showing any concerning changes, she would recommend MRI of pancreas/MRCP. Time: 22:02 Consultation #2: Called Sarah Ayala hospitalist for this evening and left message to call ED back. 22:24: Spoke with hospitalist, she accepts patient. Time: 22:05 Vital Signs Vital signs: Initial Vital Signs Temperature 98.4 F 12/19/23 19:16 Temperature Source Temporal Artery Scan 12/19/23 19:16 Pulse Rate 70 12/19/23 19:16 Respiratory Rate 16 12/19/23 19:16 Blood Pressure 160/75 H 12/19/23 19:16 Blood Pressure Mean 103 12/19/23 19:16 Blood Pressure Position Sitting 12/19/23 19:16 Pulse Oximetry 96 12/19/23 19:16 Oxygen Delivery Method Room Air 12/19/23 19:16 Vital Signs Temperature 98.4 F 12/19/23 19:16 Pulse Rate 70 12/19/23 19:16 Respiratory Rate 16 12/19/23 19:16 Blood Pressure 160/75 H 12/19/23 19:16 Pulse Oximetry 96 12/19/23 19:16 Oxygen Delivery Method Room Air 12/19/23 19:16 Temperature 98.4 F 12/19/23 19:16 Pulse Rate 64 12/19/23 21:48 Respiratory Rate 16 12/19/23 21:48 Blood Pressure 131/73 12/19/23 21:48 Pulse Oximetry 99 12/19/23 21:48 Oxygen Delivery Method Room Air 12/19/23 21:48 Medications Administered Medications: Discontinued Medications Generic Name Dose Route Start Last Admin Trade Name Freq PRN Reason Stop Dose Admin Sodium Chloride 1,000 mls @ 500 mls/hr 12/19/23 19:49 12/19/23 21:12 0.9 % Sodium Chloride 1000 Ml IV 12/19/23 21:48 Infused .Q2H DANNY Infusion Morphine Sulfate 2 mg 12/19/23 19:48 12/19/23 20:15 Morphine 2 Mg/Ml Inj IVP 12/19/23 19:49 2 mg ONCE ONE Administration Ondansetron HCl 4 mg 12/19/23 19:48 12/19/23 20:16 Ondansetron 2 Mg/Ml Inj IVP 12/19/23 19:49 4 mg ONCE ONE Administration MDM - Abdominal Pain Lab Data Attestation: I reviewed the patient's lab results. Labs: Lab Results 12/19/23 12/19/23 Range/Units 20:10 20:52 WBC 10.45 (4.50-11.00) K/uL RBC 4.51 (4.00-5.20) m/uL Hgb 13.6 (12.0-16.0) gm/dL Hct 41.2 (33.0-51.0) % MCV 91 (80-100) fL MCH 30 (26-34) pg MCHC 33 (32-36) gm/dL RDW Coeff of Rosemarie 12.5 (11.5-15.5) % Plt Count 212 (140-440) K/uL Neut % (Auto) 73.8 H (42.0-72.0) % Lymph % (Auto) 18.3 L (20-44) % [place] % (Auto) 4.4 (0.0-11.0) % Eos % (Auto) 3.0 (0.0-7.0) % Baso % (Auto) 0.3 (0.0-3.0) % Neut # (Auto) 7.70 H (1.7-7.0) K/uL Lymph # (Auto) 1.90 (0.90-2.90) K/uL [place] # (Auto) 0.50 (0.00-0.90) K/UL Eos # (Auto) 0.31 (0.00-0.50) K/uL Baso # (Auto) 0.03 (0.00-0.30) K/uL Abs Immat Gran (auto) 0.02 (0.00-0.30) K/uL Imm/Tot Granulo (auto) 0.2 % Sodium 140 (135-149) mmol/L Potassium 4.1 (3.6-5.1) mmol/L Chloride 105 (96-114) mmol/L Carbon Dioxide 26 (20-32) mmol/L Anion Gap 9 (7-15) mEq/L BUN 13 (7-30) mg/dL Creatinine 0.6 (0.5-1.5) mg/dL Estimated Creat Clear 86.10 Estimated GFR 103 ml/min Glucose 107 (60-115) mg/dL Lactate 1.1 (0.5-1.9) mmol/L Calcium 9.6 (8.4-10.6) mg/dL Total Bilirubin 0.4 (0.1-1.5) mg/dL Direct Bilirubin 0.2 (0.0-0.5) mg/dL AST 30 (12-35) U/L ALT 23 (4-35) U/L Alkaline Phosphatase 82 (40-150) U/L C-Reactive Protein < 0.5 L (0.5-1.0) mg/dL Total Protein 7.4 (6.0-8.3) g/dL Albumin 4.7 (3.3-5.0) g/dL Amylase 1712 H (18-89) U/L Lipase 46888 H (23-300) U/L Urine Color Yellow (Yellow) Urine Appearance Clear (Clear) Urine pH 6.5 (5.0-8.5) Ur Specific [place] 1.010 (1.000-1.030) Urine Protein Negative (Negative) Urine Glucose (UA) Negative (Negative) Urine Ketones Negative (Negative) Urine Blood Negative (Negative) Urine Nitrite Negative (Negative) Urine Bilirubin Negative (Negative) Urine Urobilinogen 0.2 (0.2-1.0) Ur Leukocyte Esterase Negative (Negative) Urine RBC 0-2 (0-2) Urine WBC 0-2 (0-5) Ur Squamous Epith Cells None (None-Few) Urine Bacteria None (None) Imaging Data CT scan - abdomen: Attestation: I have reviewed the pertinent imaging results. Radiologist's impression: Patient: OLY THOMPSON Facility:?[facility] Patient ID:?[id number] Site Patient ID:?[id number]. Site :?[id number] Study:?CT-Abdomen/Pelvis W/ 76CC ISOVUE 370-12/19/2023 8:55:48 PM Ordering Physician:?Karri Bartlett Final Report: INDICATION: Abdominal pain. TECHNIQUE: Multiplanar CT examination of the abdomen and pelvis was performed after the administration of 76 mL Isovue 370 intravenous contrast. COMPARISON: CT abdomen pelvis 11/17/2023. FINDINGS: Lower chest: No focal consolidation. Normal heart size. No pleural effusions or pneumothorax. Liver: Unremarkable. Gallbladder: Unremarkable. Biliary: Unremarkable. Pancreas: Pancreas appears mildly edematous with peripancreatic fat stranding. No loculated peripancreatic fluid collections identified. Spleen: Unremarkable. Adrenal glands: Unremarkable. Renal/ureters/bladder: Normal in size and symmetrically enhancing. No obstructive uropathy. No hydronephrosis or obstructive urinary calculi. No suspicious renal masses. The ureters appear unremarkable. The bladder is within normal limits. Pelvis: Unremarkable uterus. No adnexal masses. Gastrointestinal: Small hiatal hernia. No bowel wall thickening or bowel obstruction. Normal appendix. No significant colonic diverticulosis. Mild colonic stool burden. Vasculature: No aortic aneurysm. The portal vein remains patent. No significant atherosclerotic calcifications. Lymph nodes: No pathologic lymphadenopathy by size criteria. Peritoneum: No free fluid or pneumoperitoneum. No drainable fluid collections. Abdominal wall/soft tissues: Unremarkable. Bones: No acute osseous abnormalities. IMPRESSION: Findings compatible with acute interstitial edematous pancreatitis. No loculated peripancreatic fluid collections identified. Please note that all CT scans at this facility use dose modulation, iterative reconstruction, and/or weight-based dosing when appropriate to reduce radiation dose to as low as reasonably achievable. Dictated by Estuardo Lobo MD @ 12/19/2023 9:54:47 PM (Electronic Signature) Discharge Plan Discharge Clinical Impression: Acute pancreatitis Qualifiers: Pancreatitis type: unspecified pancreatitis type Acute pancreatitis complication: no infection or necrosis Qualified Code(s): K85.90 - Acute pancreatitis without necrosis or infection, unspecified Patient Disposition: Admitted As Observation
--- NOTE | 2023-12-19 19:48 | CRLHL7_ITS ---
For Patients: As a result of the Century Cures Act, medical imaging exams and procedure reports are released immediately into your electronic medical record. You may view this report before your referring provider. If you have questions, please contact your health care provider. INDICATION: Abdominal pain. TECHNIQUE: Multiplanar CT examination of the abdomen and pelvis was performed after the administration of 76 mL Isovue 370 intravenous contrast. COMPARISON: CT abdomen pelvis 11/17/2023. FINDINGS: Lower chest: No focal consolidation. Normal heart size. No pleural effusions or pneumothorax. Liver: Unremarkable. Gallbladder: Unremarkable. Biliary: Unremarkable. Pancreas: Pancreas appears mildly edematous with peripancreatic fat stranding. No loculated peripancreatic fluid collections identified. Spleen: Unremarkable. Adrenal glands: Unremarkable. Renal/ureters/bladder: Normal in size and symmetrically enhancing. No obstructive uropathy. No hydronephrosis or obstructive urinary calculi. No suspicious renal masses. The ureters appear unremarkable. The bladder is within normal limits. Pelvis: Unremarkable uterus. No adnexal masses. Gastrointestinal: Small hiatal hernia. No bowel wall thickening or bowel obstruction. Normal appendix. No significant colonic diverticulosis. Mild colonic stool burden. Vasculature: No aortic aneurysm. The portal vein remains patent. No significant atherosclerotic calcifications. Lymph nodes: No pathologic lymphadenopathy by size criteria. Peritoneum: No free fluid or pneumoperitoneum. No drainable fluid collections. Abdominal wall/soft tissues: Unremarkable. Bones: No acute osseous abnormalities. IMPRESSION: Findings compatible with acute interstitial edematous pancreatitis. No loculated peripancreatic fluid collections identified. Please note that all CT scans at this facility use dose modulation, iterative reconstruction, and/or weight-based dosing when appropriate to reduce radiation dose to as low as reasonably achievable. Dictated by Estuardo Lobo MD @ 12/19/2023 9:54:47 PM (Electronically Signed)
--- OUTSIDE RECORDS SUMMARY | 2023-12-19 20:02 | XMS_ITS | Clinical Summary ---
Author Organization [employer] [facility] Address [place], [place] [address] Care Team Providers Care Project Development Manager Name Role Phone Oly Rios MD Primary Care Provider [phone] Allergies Active Allergy Reactions Criticality Noted Date Comments Codeine Hives Penicillins Rash As a child Medications Medication Sig Dispensed Refills Start Date End Date Status albuterol HFA (PRO-AIR; VENTOLIN; PROVENTIL) 90 mcg/actuation inhalerIndications :Mild intermittent asthma without complication Inhale 2 Puffs by mouth every 4 hours if needed for Shortness Of Breath or Wheezing. 1 Each 3 12/02/2023 Active methylPREDNISolone (MedroL) 4 mg tabletIndications: Acute non-recurrent maxillary sinusitis,Seasonal allergic rhinitis due to other allergic trigger,Wheezing Take as directed. 21 Tablet 08/28/2021 12/02/2023 Discontinue d(*Med complete/Re gimen complete/Le reji of care change) azithromycin (ZITHROMAX) 250 mg tabletIndications: Acute non-recurrent maxillary sinusitis Take 500 mg (2 tabs) by mouth on day 1, then 250 mg (1 tab) daily for days 2-5. 6 Tablet 08/28/2021 12/02/2023 Discontinue d(*Med complete/Re gimen complete/Le reji of care change) albuterol HFA (PRO-AIR; VENTOLIN; PROVENTIL) 90 mcg/actuation inhalerIndications :Mild intermittent asthma without complication Inhale 2 Puffs by mouth every 4 hours if needed for Shortness Of Breath or Wheezing. 2 Each 3 09/09/2022 12/02/2023 Discontinue d(Reorder (E-cancel not sent)) Active Problems Problem Noted Date Diagnosed Date Routine adult health maintenance 09/11/2015 Overview (09/11/2015): Colonoscopy 08/2015 normal repeat in 10 years Vitamin D deficiency 02/17/2011 Unspecified asthma(493.90) Resolved Problems Problem Noted Date Diagnosed Date Resolved Date Menorrhagia 02/17/2011 08/28/2015 Adjustment disorder with mix ed anxiety and depressed mood 12/20/2009 08/28/2015 Encounters Date Type Department Care Team Description 12/02/2023 12:45 PM CDT Office Visit [facility] [address] [place] [address] Oly Rios MD Hospital F/U ([facility] 11/18/2023) 12/02/2023 Travel 11/30/2023 9:40 AM CDT [place] [facility] [address] [place] [address] Lab 11/30/2023 Travel from Last 3 Months Immunizations Name Administration Dates Next Due AMB Influenza, IIV3 (Age >=3 years)(Flu Clinic Only) 02/05/2011,01/27/2010 AMB Influenza, IIV4 PF (=>6 mos Flulaval,Fluzone Fluarix)(Flu Clinic Only) 03/08/2014 INFLUENZA, IIV3 PF (AGE >= 6 MO) 12/02/2023 Influenza RIV4 (Age 18+ Year s) PRESERV FREE 12/27/2018 Influenza, IIV3 (Age 6-35 mos) 12/28/2017,2010,03/07/2009 Influenza, IIV3 (Age >=3 years) 12/12/19 13,04/11/2012,01/27/2010, 009,03/11/2006 Influenza, IIV4 02/02/2022, 1,12/11/2019, 017,12/22/2015,01/01/2015,03/08/2014 MMR 10/16/2014,08/22/2014 Td (Age >=7 Years) 03/28/1996 Tdap 12/02/2023,05/29/2009 Tuberculin (PPD) 12/11/2019 Zoster (Shingrix-RZV, recombinant) 06/26/2021, [...] of Communication with Friends and Fami ly 0 12/02/2023 Financial Resource Strain Answer Date R ecorded Difficulty of Paying Living Expenses 3 12/02/2023 Difficulty of Paying Living Expenses Not on file 12/02/2023 Food Insecurity Answer Date Recorded Worried About Running Out of Food in the Last Ye ar 1 12/02/2023 Transportation Needs Answer Date Record ed Lack of Transportation (Medical) 1 12/02/2023 Housing Stability Answer Date Recorded Unable to Pay for Housing in the Last Year 1 12/02/2023 Sex and Gender Information Value Date Recorded [...] Sign Reading Time Taken Comments Blood Pressure 127/61 12/02/2023 12:57 PM CDT Pulse 65 12/02/2023 12:57 PM CDT Temperature 37.1 ??C (98.7 ??F) 08/28/2021 1:54 PM CD T Respiratory Rate 20 08/28/2021 1:54 PM CDT Oxygen Saturation 97% 12/02/2023 12:57 PM CDT Inhaled Oxygen Concentration - - Weight 71.2 kg (157 lb) 12/02/2023 12:57 PM CDT Height 162 cm (5' 3.78) 06/26/2021 9:44 AM CDT Body Mass Index 27.14 06/26/2021 9:44 AM CDT Plan of Treatment Upcoming Encounters Date Type Department Care Team (Late st Contact Info) Description 02/02/2024 7:30 AM RN CLINICAL TRIALS Office Visit [facility] [address] [place] [address] Abelino Fregoso MD [address] [place] [address] Health Maintenance Due Date Last Done Comments HIV for age 15-65 09/25/1978 Depression screening for age 12+ 04/20/2020 04/20/2019, 03/03/2017, 09/15/2015 BMI (ht and wt on same day) for age 18+ 06/26/2022 06/26/2021, 05/29/2019, 04/20/2019, Additional history exists Pap test for age 21-65 04/20/2024 , 04/20/2019, 08/28/2015, Additional history exists Mammogram for age 45-75 05/24/2024 05/24/19, 04/21/2022, 02/05/2021, Additional history exists Colonoscopy through age 75 09/10/2025 09/11/2015, Lipids for age 45-75 11/29/2028 11/30/2023, 06/26/2021, 04/20/2019, Additional history exists Tetanus booster 12/01/2033 12/02/2023, 03/0 06/2009, 03/28/1996 Hepatitis C screening for age 18-79 Completed 04/20/2019 Zoster (shingles) series for age 50+ Completed 06/26/2021, 04/20/2019 COVID-19 vaccine series Completed 12/31/19 23, 02/02/2022, 01/26/2021, Additional history exists Influenza for age 50-64 Completed 12/02/19 24, 02/02/2022, 01/16/2021, Additional history exists Tdap Completed 12/02/2023, 05/29/2009 Pneumococcal series for age 6-64 Aged Out No longer eligible based on patient's age to complete this topic Procedures Procedure Name Priority Date/Time Associated Diagnosis Comments HEMOGLOBIN A1C SCREENING Routine 12/02/2023 1:47 PM CDT Elevated glucose URINALYSIS MICROSCOPIC Routine 11/30/2023 9:56 AM CDT Microscopic hematuria UA W/ SEDIMENT EXAM REFLEXED PER CRITERIA Routine 11/30/2023 9:56 AM CDT Microscopic hematuria LIPASE Routine 11/30/2023 9:47 AM CDT Other acute pancreatitis without necrosis or infection COMP METABOLIC PANEL Routine 11/30/2023 9:47 AM CDT Other acute pancreatitis without necrosis or infection TSH WITH REFLEX Routine 11/30/2023 9:47 AM CDT Family history of thyroid disease LIPID PANEL W REFLEX MEASURED LDL Routine 11/30/2023 9:47 AM CDT Hyperlipidemia, unspecified hyperlipidemia type XR MAMMO JOEL BILAT SCREEN Routine 05/24/2023 9:15 AM RN CLINICAL TRIALS Visit for screening mammogram ANTI HCV Routine 04/20/2019 11:09 AM RN CLINICAL TRIALS Encounter for hepatitis C screening test for low risk patient FURNITURE INSPECTOR THIN PREP PAP SCREEN IMAGED Routine 04/20/2019 10:49 AM RN CLINICAL TRIALS Cervical cancer screening from Last 3 Months or Most Recently Relevant to Health Maintenance Results * HEMOGLOBIN A1C SCREENING (12/02/2023 1:47 PM CDT) HEMOGLOBIN A1C SCREENING 5.6 <=6.4 % 12/03/2023 8:02 AM CDT [facility] Blood BLOOD SPECIMEN / Unknown Venipuncture / Unknown 12/02/2023 1:47 PM CDT 12/02/2023 1:47 PM CDT Narrative [facility] - 12/03/2023 8:02 AM CDT ? (<5.7%) ?Normal ? (5.7% to 6.4%) ? Indicates prediabetes ? (>=6.5%) ? Confirms diabetes Falsely low levels may be seen with: Recent Transfusion, Recent Significant Blood Loss, Hemolytic Diseases, or Falsely elevated levels may be seen with: Untreated Anemias, Splenectomy Oly Rios MD CHEMISTRY Performing Organization Address [facility] Co de Phone Number [facility] [address] [place] [id number], [place] * URINALYSIS MICROSCOPIC (11/30/2023 9:56 AM CDT) RBC 0-2 0-2, None Seen /HPF 11/30/2023 1:26 PM CDT [facility] WBC 0-2 0-2, 3-5, None Seen /HPF 11/30/2023 1:26 PM CDT [facility] BACTERIA None Seen None Seen, Rare, Few Bacteria/ HPF 11/30/2023 1:26 PM CDT [facility] EPITHELIAL CELLS None Seen None Seen, Few Epi/HPF 11/30/2023 1:26 PM CDT [facility] HYALINE CASTS 0-2 0-2, 3-5 /LPF 11/30/2023 1:26 PM CDT [facility] Urine URINE SPECIMEN / Unknown Non-Blood / Unknown 11/30/2023 9:56 AM CDT 11/30/2023 9:56 AM CDT Oly Rios MD URINE Performing Organization Address City/[facility]/ZIP Co de Phone Number [facility] [address] [place] [id number], [place] * (ABNORMAL) UA W/ SEDIMENT EXAM REFLEXED PER CRITERIA (11/30/2023 9:56 AM CDT) COLOR Yellow Yellow Color 11/30/2023 10:03 AM CDT [facility] CLARITY Clear Clear Clarity 11/30/2023 10:03 AM CDT [facility] SPECIFIC GRAVITY,URINE >=1.030(A) 1.010, 1.015, 1.020, 1.025 11/30/2023 10:03 AM CDT [facility] PH,URINE 6.0 6.0, 7.0, 8.0, 5.5, 6.5, 7.5, 8.5 11/30/2023 10:03 AM CDT [facility] UROBILINOGEN, QUALITATIVE Normal Normal EU/dl 11/30/2023 10:03 AM CDT [facility] PROTEIN, URINE Negative Negative mg/dL 11/30/2023 10:03 AM CDT [facility] GLUCOSE, URINE Negative Negative mg/dL 11/30/2023 10:03 AM CDT [facility] KETONES,URINE Negative Negative mg/dL 11/30/2023 10:03 AM CDT [facility] BILIRUBIN,URI NE Negative Negative 11/30/2023 10:03 AM CDT [facility] OCCULT BLOOD,URINE Trace(A) Negative 11/30/2023 10:03 AM CDT [facility] NITRITE Negative Negative 11/30/2023 10:03 AM CDT [facility] LEUKOCYTE ESTERASE Negative Negative 11/30/2023 10:03 AM CDT [facility] Urine URINE SPECIMEN / Unknown Non-Blood / Unknown 11/30/2023 9:56 AM CDT 11/30/2023 9:56 AM CDT Oly Rois MD URINE [facility] [address] [place] [address], [place] * TSH WITH REFLEX (11/30/2023 9:47 AM CDT) TSH 1.11 0.27 - 4.20 uIU/mL 11/30/2023 1:34 PM CDT [facility] Blood BLOOD SPECIMEN / Unknown Venipuncture / Unknown 11/30/2023 9:47 AM CDT 11/30/2023 9:47 AM CDT [facility] - 11/30/2023 1:34 PM CDT In Adults, TSH values between 5.00 and 10.00 uIU/ml do not necessarily indicate the presence of Hypothyroidism. Correlation with clinical findings such as presence of goiter and/or Thyroperoxidase (TPO) Antibody may be helpful. For more information please refer to MAINE 2004; 291: 228-238. Oly Rios MD CHEMISTRY [facility] [address] [place] [address], * (ABNORMAL) LIPID PANEL W REFLEX MEASURED LDL (11/30/2023 9:47 AM CDT) CHOLESTEROL,TOTAL 191 100 - 199 mg/dL 11/30/2023 1:34 PM CDT [facility] Comment: Cholesterol, Total Reference Ranges Desirable <200 mg/dL Borderline 200-239 mg/dL High >=240 mg/dL TRIGLYCERIDES 88 <150 mg/dL 11/30/2023 1:34 PM CDT [facility] HDL CHOLESTEROL 40(L) >40 mg/dL 1:34 PM T [facility] NON-HDL CHOLESTEROL 151(H) <145 mg/dl 11/30/2023 1:34 PM CDT [facility] CHOL/HDL RATIO 4.78(H) <4.50 11/30/2023 1:34 PM CDT [facility] LDL CHOLESTEROL 133(H) <=130 mg/dL 11/30/2023 1:34 PM CDT [facility] VLDL CHOLESTEROL 18 <=30 mg/dL 11/30/2023 1:34 PM CDT [facility] PROVIDER ORDERED STATUS RANDOM 11/30/2023 1:34 PM CDT [facility] Blood BLOOD SPECIMEN / Unknown Venipuncture / Unknown 11/30/2023 9:47 AM CDT 11/30/2023 9:47 AM CDT Oly Rios MD CHEMISTRY Performing Organization Address City/[facility]/ZIP Co de Phone Number [facility] [address] [place] [address], [place] * LIPASE (11/30/2023 9:47 AM CDT) LIPASE 35.6 13.0 - 60.0 IU/L 11/30/2023 1:34 PM CDT [facility] Blood BLOOD SPECIMEN / Unknown Venipuncture / Unknown 11/30/2023 9:47 AM CDT 11/30/2023 9:47 AM CDT Oly Rios MD CHEMISTRY Performing Organization Address City/[facility]/ZIP Co de Phone Number [facility] [address] [place] [address], [place] * (ABNORMAL) COMP METABOLIC PANEL (11/30/2023 9:47 AM CDT) SODIUM 143 136 - 145 mmol/L 11/30/2023 1:34 PM CDT [facility] POTASSIUM 4.3 3.5 - 5.1 mmol/L 11/30/2023 1:34 PM CDT [facility] CHLORIDE 106 98 - 107 mmol/L 11/30/2023 1:34 PM CDT [facility] CO2,TOTAL 28 22 - 29 mmol/L 11/30/2023 1:34 PM CDT [facility] ANION GAP 9 5 - 18 11/30/2023 1:34 PM CDT [facility] GLUCOSE 105(H) 70 - 99 mg/dL 11/30/2023 1:34 PM CDT [facility] CALCIUM 9.5 8.8 - 10.2 mg/dL 11/30/2023 1:34 PM CDT [facility] BUN 14 8 - 23 mg/dL 11/30/2023 1:34 PM CDT [facility] CREATININE 0.80 0.50 - 0.90 mg/dL 11/30/2023 1:34 PM T [facility] BUN/CREAT RATIO 18 10 - 20 1:34 PM T [facility] eGFR 84(L) >90 mL/min/1.7 3m2 11/30/2023 1:34 PM T [facility] Comment:As of 2021, eG FR is calculated by the CKD-EPI creatinine equation without race adjustment. ??eGFR can be influenced by muscle mass, exercise, and diet. ??The reported eGFR is an estimation only and is only applicable if the renal function is stable. ALBUMIN 4.2 4.0 - 4.9 g/dL 11/30/2023 1:34 PM CDT [facility] PROTEIN,TOTAL 6.9 6.0 - 8.0 g/dL 11/30/2023 1:34 PM T [facility] BILIRUBIN,TOTAL 0.3 0.0 - 1.2 mg/dL 11/30/2023 1:34 PM CDT [facility] ALK PHOSPHATASE 86 35 - 104 IU/L 11/30/2023 1:34 PM T [facility] ALT (SGPT) 13 10 - 35 IU/L 11/30/2023 1:34 PM CDT [facility] AST (SGOT) 21 10 - 35 IU/L 11/30/2023 1:34 PM T [facility] Blood BLOOD SPECIMEN / Unknown Venipuncture / Unknown 11/30/2023 9:47 AM CDT 11/30/2023 9:47 AM CDT Oly Rios MD CHEMISTRY [facility] [address] [place] [address], * XR MAMMO JOEL BILAT SCREEN (05/24/2023 9:15 AM RN CLINICAL TRIALS) Anatomical Region Laterality Modality BREASTS, Breast Left, Breast Right Bilateral Mammography Impressions 05/24/2023 10:31 AM RN CLINICAL TRIALS ??There is no radiographic evidence for malignancy. ??Recommend annual mammograms. MAMMOGRAM ASSESSMENT: ??ACR 1 Negative PATIENTS: You will also receive a letter with your examination results in an easy to read format. ??If you have questions about your results, please contact your referring provider. Narrative 05/24/2023 10:31 AM RN CLINICAL TRIALS For Patients: As a result of the Century Cures Act, medical imaging exams and procedure reports are released immediately into your electronic medical record. You may view this report before your referring provider. If you have questions, please contact your health care provider. XR MAMMO JOEL BILAT SCREEN [[id number]] CLINICAL HISTORY: ??This is an asymptomatic 57 y.o. patient. INDICATION FOR EXAM: Mammogram Screening. TECHNIQUE: CC & MLO views were obtained. ??This study was evaluated with the assistance of Computer-Aided Detection. Breast Tomosynthesis was used in interpretation. COMPARISON FILM: Yes 04/21/22 [facility] 02/05/21 [facility] FINDINGS: ??The breasts have scattered areas of fibroglandular density. There are no dominant masses, suspicious micro calcifications or areas of architectural distortion. Oly Riso MD MAMMO * ANTI HCV (04/20/2019 11:09 AM RN CLINICAL TRIALS) HEPATITIS C ANTIBODY Non-React sadia Non-React sadia 04/20/2019 4:36 PM RN CLINICAL TRIALS [facility] Comment:Antibodies to HCV no t detected; does not exclude the possibility of exposure to HCV. Blood BLOOD SPECIMEN / Unknown Venipuncture / Unknown 04/20/2019 11:09 AM RN CLINICAL TRIALS 04/20/2019 11:09 AM RN CLINICAL TRIALS Oly Rios MD SEND OUTS [facility] [address] [place] [address], [place] * FURNITURE INSPECTOR THIN PREP PAP SCREEN IMAGED (04/20/2019 10:49 AM RN CLINICAL TRIALS) Case Report Gynecologic Cytology Report ? Case: [id number] ? Authorizing Provider: ??Oly Rios MD ? Collected: ? 04/20/2019 1049 ? Ordering Location: ? [facility] ?? Received: ?04/20/2019 1111 ? Clinic ? First Screen: ?Sarah Fink ? Rescreen: ?Patito Menjivar ? Specimen: ?FURNITURE INSPECTOR ThinPrep Vial Screening, Cervical ? 05/07/2019 10:32 AM [facility] [employer]- ENTRAL LABORATORY INTERPRETATION/ RESULT NEGATIVE FOR INTRAEPITHELIAL LESION OR MALIGNANCY (NIL) (none) 05/07/2019 10:32 AM [email or web address] IMEN ADEQUACY Satisfactory for evaluation Endocervical component present 05/07/2019 10:32 AM RN CLINICAL TRIALS [facility]AL LAB[facility] HPV REQUEST HPV and PAP 05/07/2019 10:32 AM RN CLINICAL TRIALS [employer] [facility] EN[facility] LABORATORY Date of LMP 2014 05/07/2019 10:32 AM [email or web address] Last Pap Date 08/28/15 05/07/2019 10:32 AM RN CLINICAL TRIALS [facility] [employer] [facility] Last Pap Result NIL 0 10:[address] [facility] [employer] [facility] ENTRAL LABORATORY Abnormal Pap or [place] Bx in last 5 years No 05/07/2019 10:32 AM [email or web address] Menstrual Status Postmenopausal 05/07/2019 10:32 AM [email or web address] ENTRAL LABORATORY [place] Bx Done Today No 05/07/2019 10:[address] [facility] [employer] [facility] ENTRAL LAB[facility]ATORY Additional Information None given 05/07/2019 10:[address] [facility] [place] [employer] [facility] ENTRAL LABORATORY Comment: Cytology is screened at [facility] - [address], [place] [address] [facility] - [address], [place] [address] [facility] - [address] [place] [address] Interpreted at [facility] - [address], [place] [address] Automated Review Successful 05/07/2019 10:[address] [facility] [place] [employer] [facility] ENTRAL LABORATORY Comment:Specimen processed s uccessfully by automated ict programmer device, ThinPrep Imaging System, [employer] ANCILLARY TESTING FURNITURE INSPECTOR HPV Ordered, Please see separate report 05/07/2019 10:32 AM RN CLINICAL TRIALS [facility] EN[facility]AL LAB[facility]ATORY Note The pap test is a screening technique, not a diagnostic procedure. It is used primarily to screen for squamous cancers and precursor lesions. Published studies have shown that it is subject to both false negative and false positive results. The pap test should not be used as the sole means to diagnose or exclude pre-malignant and malignant lesions. 05/07/2019 10:32 AM RN CLINICAL TRIALS [facility] EN[facility]AL LAB[facility]ORY Other (Cervical) Non-Blood / Unknown 04/20/2019 10:49 AM RN CLINICAL TRIALS 04/20/2019 11:11 AM RN CLINICAL TRIALS Oly Rios MD PATHOLOGY/CYTOLOGY [facility] [address] [place] [address], from Last 3 Months or Most Recently Relevant to Health Maintenance Care Teams Project Development Manager Relationship Specialty Start Date End Date Oly Rios MD [address] [place] [address] PCP - General Family Practice 04/20/19
[2023-12-19] MEDS: MORPHINE 2 MG/ML inj IVP (20:15)
[2023-12-19] MEDS: 0.9 % SODIUM CHLORIDE 1000 ml 1,000 ML 500 ML IV (20:16)
[2023-12-19] MEDS: ONDANSETRON 2 MG/ML inj 4 MG IVP ×2 (20:16→23:59)
[2023-12-19 20:19] LABS: Lactate* 1.1 mmol/L (0.5-1.9)
[2023-12-19 20:25] LABS: Basophils Absolute Auto 0.03 K/uL (0.00-0.30); Basophils Percent Auto 0.3 % (0.0-3.0); Eosinophils Absolute Auto 0.31 K/uL (0.00-0.50); Hematocrit 41.2 % (33.0-51.0); Hemoglobin* 13.6 gm/dL (12.0-16.0); Immature Granulocytes Abs Auto 0.02 K/uL (0.00-0.30); Immature Granulocytes Pct Auto 0.2 %; Lymphocytes Percent Auto 18.3 % (20-44); Mean Corpuscular HGB Conc 33 gm/dL (32-36); Mean Corpuscular Hemoglobin 30 pg (26-34); Mean Corpuscular Volume 91 fL (80-100); Monocytes Percent Auto 4.4 % (0.0-11.0); Neutrophils Percent Auto 73.8 % (42.0-72.0); Platelet Count* 212 K/uL (140-440); RDW Coefficient of Variation % 12.5 % (11.5-15.5); Red Blood Count 4.51 m/uL (4.00-5.20); White Blood Count* 10.45 K/uL (4.50-11.00)
[2023-12-19 20:28] LABS: Slide Review Reflex No
[2023-12-19 20:42] LABS: Albumin* 4.7 g/dL (3.3-5.0)
[2023-12-19 20:43] LABS: Chloride* 105 mmol/L (96-114); Potassium* 4.1 mmol/L (3.6-5.1); Sodium* 140 mmol/L (135-149)
[2023-12-19 20:45] LABS: Creatinine* 0.6 mg/dL (0.5-1.5); Estimated Glomerular Filt Rate 103 ml/min
[2023-12-19 20:46] LABS: Alkaline Phosphatase* 82 U/L (40-150); Anion Gap 9 mEq/L (7-15); Aspartate Amino Transferase* 30 U/L (12-35); Bilirubin Direct* 0.2 mg/dL (0.0-0.5); Bilirubin Total* 0.4 mg/dL (0.1-1.5); Blood Urea Nitrogen* 13 mg/dL (7-30); Calcium* 9.6 mg/dL (8.4-10.6); Carbon Dioxide* 26 mmol/L (20-32); Glucose* 107 mg/dL (60-115); Total Protein* 7.4 g/dL (6.0-8.3)
[2023-12-19 20:47] LABS: Alanine Aminotransferase* 23 U/L (4-35)
[2023-12-19 20:49] LABS: C Reactive Protein* < 0.5 mg/dL (0.5-1.0)
[2023-12-19 20:53] LABS: Amylase* 1712 U/L (18-89)
[2023-12-19 21:07] VITALS: O2SAT 98
[2023-12-19 21:08] LABS: Appearance Urine Clear (Clear); Bilirubin Urine Negative (Negative); Blood Urine Negative (Negative); Color Urine Yellow (Yellow); Glucose Urine Negative (Negative); Ketones Urine Negative (Negative); Leukocyte Esterase Urine Negative (Negative); Nitrite Urine Negative (Negative); Protein Urine Negative (Negative); Urobilinogen Urine 0.2 (0.2-1.0); pH Urine 6.5 (5.0-8.5)
[2023-12-19 21:11] LABS: RBC Urine 0-2 (0-2); WBC Urine 0-2 (0-5)
[2023-12-19 21:48] VITALS: BP 131/73; PULSE 64; RESP 16; O2SAT 99
[2023-12-19 22:18] LABS: Lipase* 12847 U/L (23-300)
--- NOTE | 2023-12-19 23:29 | PM.IMHP1 ---
Hospitalist- H&P: HPI History of Present Illness Date Seen: 12/19/23 Chief complaint: upper left abdominal pain Narrative: Oly Topete is a 58 year old female past medical history significant for mild intermittent asthma, vitamin-D deficiency, recent idiopathic pancreatitis is admitted to the medical floor from the ED for further management acute recurrent pancreatitis. Patient reports feeling well, her normal self, until mid afternoon at which time she began experiencing left upper quadrant pain and bloating radiating across her abdomen and into the left side of her back. Has had mild intermittent nausea without vomiting. No change in her stools. No change in urination. No recent fevers. Denies chest pain or shortness of breath. Patient was recently hospitalized 11/16-11/17 with acute pancreatitis, thought to be idiopathic at that time. Her lipase on admission at that time was 6766. Her CT of her abdomen pelvis was done on November 16, showed mild acute interstitial edematous pancreatitis involving the body and tail of the pancreas recommend correlation with amylase and lipase. Punctate nonobstructing left nephrolith. Gallbladder and bile ducts were not shown to have any stones or inflammation, no biliary dilatation. Patient's liver functions were completely normal. Lipase today is 12,847. ED provider discussed with Dr. Elder, General Surgery, recommending admission with gallbladder ultrasound tomorrow morning. If no concerning findings with ultrasound, patient should have an MRCP. Currently, MRI may not be available until after 1:00 p.m. tomorrow. Patient may also need transfer for ERCP pending further workup. Nonsmoker. Rare alcohol use (none since admission in October). Not currently on any prescription medications, does not use any supplements, is mindful of her diet. Review of Systems Narrative: REVIEW OF SYSTEMS: Complete review of systems performed and negative unless otherwise stated in HPI or below. PFSH [facility] Medical History Vitamin D deficiency ?E55.9 - Vitamin D deficiency, unspecified (ICD-10) Mild intermittent asthma ?J45.20 - Mild intermittent asthma, uncomplicated (ICD-10) Surgical History History of colposcopy ?Z98.890 - Other specified postprocedural states (ICD-10) History of colonoscopy ?Z98.890 - Other specified postprocedural states (ICD-10) History of section ?Z98.891 - History of uterine scar from previous surgery (ICD-10) Social History What is your current living situation?: I presently have a place to live Problems where you live: no known problems Problems where you live details: NA In the past 12 months, utilities in danger of being shut off: no In past 12 months, lack of transportation kept you from medical appts, meetings, work, or getting things needed for daily living: no In the past 12 mos, have been you worried that your food would run out before you had money to buy more?: never true In the past 12 mos, the food you bought just didn't last and you didn't have money to buy more?: never true Highest level of school completed/degree received: Bachelor's degree Smoking Status: Never smoker Do you use any of these nicotine containing products: None Second hand tobacco smoke exposure: No How often do you have a drink containing alcohol: never AUDIT-C Alcohol total score: 0 Non-prescribed substance use: denies use Caffeine: Yes (1 Cup Coffee per day) How often does anyone, including family, friends and others, physically hurt you: never How often does anyone, including family, friends and others, insult or talk down to you: never How often does anyone, including family, friends and others, threaten you with harm: never How often does anyone, including family, friends and others, scream or curse at you: never service: No Meds Home Medications and Allergies Home Medications ?Medication ?Instructions ?Recorded ?Confirmed ?Type No Known Home Medications 12/19/23 12/19/23 History Allergies Allergy/AdvReac Type Severity Reaction Status Date / Time codeine Allergy Mild Hives Verified 12/19/23 20:39 Penicillins Allergy Mild Hives Verified 12/19/23 20:39 Exam Narrative: Exam Narrative: PHYSICAL EXAM General: Pleasant, conversant, NAD HEENT: Normocephalic, atraumatic, sclera white, EOMI, oral mucosa moist Cardiovascular: RRR, S1S2. No pitting edema Pulmonary: CTA bilaterally without rhonchi, rales, expiratory wheezes. No dyspnea Abdominal: Soft, nondistended, TTP left upper quadrant/left lateral abdomen Neurological: Alert, answering questions appropriately, cranial nerves intact, no focal findings Extremities: No gross joint deformity or swelling. AROMI. Neurovascularly intact Skin: Warm, dry. Const: Vital Signs, click to edit/add: Vital Signs - 24 hr 12/19/23 19:16 12/19/23 21:07 12/19/23 21:48 Temperature 98.4 F Pulse Rate [Pulse Oximeter] 70 64 Respiratory Rate 16 16 Blood Pressure [Ri ght Upper Arm] 160/75 H 131/73 Pulse Oximetry 96 98 99 Oxygen Delivery Me thod Room Air Room Air Hospitalist - H&P: Result Labs Labs: Short CBC 12/19/23 Range/Units 20:10 WBC 10.45 (4.50-11.00) K/uL Hgb 13.6 (12.0-16.0) gm/dL Hct 41.2 (33.0-51.0) % Plt Count 212 (140-440) K/uL BMP 12/19/23 20:10 Sodium 140 Potassium 4.1 Chloride 105 Carbon Dioxide 26 BUN 13 Creatinine 0.6 Glucose 107 Calcium 9.6 Liver Function 12/19/23 Range/Units 20:10 Total Bilirubin 0.4 (0.1-1.5) mg/dL Direct Bilirubin 0.2 (0.0-0.5) mg/dL AST 30 (12-35) U/L ALT 23 (4-35) U/L Alkaline Phosphatase 82 (40-150) U/L Albumin 4.7 (3.3-5.0) g/dL Urine 12/19/23 Range/Units 20:52 Urine Color Yellow (Yellow) Urine Appearance Clear (Clear) Urine pH 6.5 (5.0-8.5) Ur Specific [place] 1.010 (1.000-1.030) Urine Protein Negative (Negative) Urine Glucose (UA) Negative (Negative) Imaging CT scan - abdomen: Attestation: I have reviewed the pertinent imaging results. Radiologist's impression: Lower chest: No focal consolidation. Normal heart size. No pleural effusions or pneumothorax. Liver: Unremarkable. Gallbladder: Unremarkable. Biliary: Unremarkable. Pancreas: Pancreas appears mildly edematous with peripancreatic fat stranding. No loculated peripancreatic fluid collections identified. Spleen: Unremarkable. Adrenal glands: Unremarkable. Renal/ureters/bladder: Normal in size and symmetrically enhancing. No obstructive uropathy. No hydronephrosis or obstructive urinary calculi. No suspicious renal masses. The ureters appear unremarkable. The bladder is within normal limits. Pelvis: Unremarkable uterus. No adnexal masses. Gastrointestinal: Small hiatal hernia. No bowel wall thickening or bowel obstruction. Normal appendix. No significant colonic diverticulosis. Mild colonic stool burden. Vasculature: No aortic aneurysm. The portal vein remains patent. No significant atherosclerotic calcifications. Lymph nodes: No pathologic lymphadenopathy by size criteria. Peritoneum: No free fluid or pneumoperitoneum. No drainable fluid collections. Abdominal wall/soft tissues: Unremarkable. Bones: No acute osseous abnormalities. IMPRESSION: Findings compatible with acute interstitial edematous pancreatitis. No loculated peripancreatic fluid collections identified. Assessment and Plan Assessment and plan (1) Acute pancreatitis: Problem comment: Acute, recurrent, previous episode 1 month ago, thought to be likely idiopathic CT shows acute interstitial edematous pancreatitis. No loculated peripancreatic fluid collections identified Lipase 12,847, amylase 1712, LFTs unremarkable, CRP <0.5. Afebrile, no leukocytosis NPO IVF, pain and nausea management as needed Ultrasound in the morning May need MRCP. May need to consider transfer for ERCP Consult general surgery Status: Acute Total Time Spent Total Time Spent: Total time spent caring for the patient today was 60 minutes. This includes time spent for the visit reviewing the chart, time spent during the visit, time spent after the visit and documentation and planning in coordination of care.
[2023-12-19] MEDS: ENOXAPARIN 40 MG/0.4 ML INJ SUBCUT (23:58)
[2023-12-19] MEDS: MORPHINE 4 MG/ML INJ 2 MG IVP (23:59)
[2023-12-20] VITALS (9 sets, daily range): BP systolic 105–140; BP diastolic 60–75; PULSE 72–91; RESP 16–18; TEMP 36.6–38.2; O2SAT 95–99; BMI 27.2
[2023-12-20] MEDS: 0.9 % SODIUM CHLORIDE 1000 ml 1,000 ML 125 ML IV ×2 (00:06→07:48)
[2023-12-20 06:35] LABS: Hematocrit 35.2 % (33.0-51.0); Hemoglobin* 11.6 gm/dL (12.0-16.0); Mean Corpuscular HGB Conc 33 gm/dL (32-36); Mean Corpuscular Hemoglobin 31 pg (26-34); Mean Corpuscular Volume 93 fL (80-100); Platelet Count* 161 K/uL (140-440); Red Blood Count 3.79 m/uL (4.00-5.20); White Blood Count* 8.07 K/uL (4.50-11.00)
[2023-12-20 06:46] LABS: Slide Review Reflex No
[2023-12-20 06:49] LABS: Albumin* 3.7 g/dL (3.3-5.0)
[2023-12-20 06:50] LABS: Chloride* 108 mmol/L (96-114); Potassium* 3.9 mmol/L (3.6-5.1); Sodium* 139 mmol/L (135-149)
[2023-12-20 06:52] LABS: Alkaline Phosphatase* 71 U/L (40-150); Amylase* 943 U/L (18-89); Anion Gap 4 mEq/L (7-15); Aspartate Amino Transferase* 21 U/L (12-35); Bilirubin Total* 0.5 mg/dL (0.1-1.5); Blood Urea Nitrogen* 9 mg/dL (7-30); Carbon Dioxide* 27 mmol/L (20-32); Creatinine* 0.6 mg/dL (0.5-1.5); Estimated Glomerular Filt Rate 103 ml/min
[2023-12-20 06:53] LABS: Alanine Aminotransferase* 18 U/L (4-35); Calcium* 8.6 mg/dL (8.4-10.6); Glucose* 100 mg/dL (60-115)
--- NOTE | 2023-12-20 07:07 | PC.NURSE ---
Arrived to the floor around 2300 via wheelchair. A&O pleasant and cooperative. VSS. Rating pain in abdomen /10. See eMAR for intervention. Zofran given w/ pain meds per pt request. Up at kim in room. Using call light appropriately.
[2023-12-20 07:17] LABS: Lipase* 4304 U/L (23-300)
--- NOTE | 2023-12-20 09:15 | CRLHL7_ITS ---
For Patients: As a result of the Century Cures Act, medical imaging exams and procedure reports are released immediately into your electronic medical record. You may view this report before your referring provider. If you have questions, please contact your health care provider. INDICATION: Acute pancreatitis COMPARISON: CT 12/19/2023 TECHNIQUE: Real time obrien scale imaging and color Doppler analysis was performed of the right upper quadrant. FINDINGS: The patient`s liver is of normal size and has mildly increased echogenicity. There is a normal appearance of the hepatic IVC and proximal abdominal aorta. There is no evidence of ascites. The gallbladder is of normal size and there is no evidence of intraluminal stones or sludge. The gallbladder wall measures 2.4 mm in thickness. The common bile duct is of normal size and measures 2.2 mm in diameter at the level of the travon hepatis. The pancreas is not well visualized. Normal patency of the main portal vein. There is no evidence of a stone or hydronephrosis within the right kidney. The right kidney measures 10.9 cm in length. IMPRESSION: Fatty liver. Normal gallbladder. Incomplete visualization of the pancreas. Dictated by Francisco Jain MD @ 12/20/2023 1:44:58 PM (Electronically Signed)
--- NOTE | 2023-12-20 11:33 | P.GSCN_ITS ---
History of Present Illness Consult details Date Seen: 12/20/23 Consult date: 12/20/23 Narrative: 58-year-old female presented to emergency room with left upper quadrant pain and I was asked by Dr. Alfaro see her in consultation. Patient states that yesterday around 3 in the afternoon she felt bloated and started to notice pain in the left upper quadrant. The pain was radiating to her back. The pain was constant. She had a similar episode 2 weeks ago when she was hospitalized with acute pancreatitis. Patient felt that this pain was very similar, and presented to emergency room. She had nausea but no vomiting. Her last bowel movement was yesterday. I personally reviewed her laboratory and imaging findings. On her current workup she was found to have a normal WBC. The lipase was over 12,000 and today the lipase went down to over 4000. An abdominal CT was obtained yesterday that showed inflammation adjacent to the pancreatic tail. This was similar to the CT on 11/18/2023 when patient was hospitalized with a first episode of pancreatitis. Patient rarely takes Advil. She rarely drinks alcohol. Her last alcoholic drink was approximately end of September-beginning of October. She denies any family history of pancreatic cancers. Review of Systems Narrative: General: no fevers HENT: no problems swallowing CV: no shortness of breath Resp: no cough GI: No nausea, vomiting, abdominal pain : no dysuria, no increased urinary frequency, no hematuria Skin: no new rashes Musculoskeletal: no back pain Neuro: no muscle weakness Psyche: no depression, no anxiety PFSH PFSH Medical History (Updated 12/19/23 @ 23:39 by Sarah Kaur PA-C) Vitamin D deficiency ?E55.9 - Vitamin D deficiency, unspecified (ICD-10) Mild intermittent asthma ?J45.20 - Mild intermittent asthma, uncomplicated (ICD-10) Surgical History History of colposcopy ?Z98.890 - Other specified postprocedural states (ICD-10) History of colonoscopy ?Z98.890 - Other specified postprocedural states (ICD-10) History of section ?Z98.891 - History of uterine scar from previous surgery (ICD-10) Social History What is your current living situation?: I presently have a place to live Problems where you live: no known problems Problems where you live details: NA In the past 12 months, utilities in danger of being shut off: no In past 12 months, lack of transportation kept you from medical appts, meetings, work, or getting things needed for daily living: no In the past 12 mos, have been you worried that your food would run out before you had money to buy more?: never true In the past 12 mos, the food you bought just didn't last and you didn't have money to buy more?: never true Highest level of school completed/degree received: Bachelor's degree Smoking Status: Never smoker Do you use any of these nicotine containing products: None Second hand tobacco smoke exposure: No How often do you have a drink containing alcohol: never AUDIT-C Alcohol total score: 0 Non-prescribed substance use: denies use Caffeine: Yes (1 Cup Coffee per day) How often does anyone, including family, friends and others, physically hurt you : never How often does anyone, including family, friends and others, insult or talk down to you: never How often does anyone, including family, friends and others, threaten you with harm: never How often does anyone, including family, friends and others, scream or curse at you: never service: No Meds Home Medications and Allergies Home Medications ?Medication ?Instructions ?Recorded ?Confirmed ?Type albuterol sulfate 90 mcg/actuation 2 puff inhalation Q4H PRN wheezing 12/20/23 12/20/23 History aerosol inhaler Allergies Allergy/AdvReac Type Severity Reaction Status Date / Time codeine Allergy Mild Hives Verified 12/19/23 20:39 Penicillins Allergy Mild Hives Verified 12/19/23 20:39 Exam Narrative: Exam Narrative: General appearance: Alert, cooperative, and in no distress Pulmonary: Chest symmetric, lungs clear bilaterally Cardiovascular Heart: Regular rate and rhythm, S1, S2, no murmurs/rubs/gallops Gastrointestinal Abdominal: soft, not distended, tender to palpation in the left upper quadrant with no rebound tenderness. Not tender to palpation in bilateral lower quadrants. Skin: Normal skin color, texture, and turgor. No rashes or lesions. Psychiatric: Alert, cooperative, normal affect. Const: Vital Signs, click to edit/add: Vital Signs - 24 hr 12/19/23 19:16 12/19/23 21:07 12/19/23 21:48 Temperature 98.4 F Pulse Rate [Pulse Oximeter] 70 64 Respiratory Rate 16 16 Blood Pressure [Ri ght Arm] Blood Pressure [Ri ght Upper Arm] 160/75 H 131/73 Pulse Oximetry 96 98 99 Oxygen Delivery Me thod Room Air Room Air 12/20/23 00:37 12/20/23 04:13 12/20/23 07:45 Temperature 98.2 F 98.7 F 97.8 F Pulse Rate [Pulse Oximeter] 72 81 90 Respiratory Rate 16 16 18 Blood Pressure [Ri ght Arm] 127/75 121/66 128/64 Blood Pressure [Ri ght Upper Arm] Pulse Oximetry 99 98 95 Oxygen Delivery Me thod Room Air Room Air Room Air 12/20/23 08:50 Temperature Pulse Rate [Pulse Oximeter] 90 Respiratory Rate 18 Blood Pressure [Ri ght Arm] Blood Pressure [Ri ght Upper Arm] Pulse Oximetry Oxygen Delivery Me thod Results Labs Labs: Abnormal lab results 12/19/23 12/20/23 Range/Units 20:10 06:15 RBC 3.79 L (4.00-5.20) m/uL Hgb 11.6 L (12.0-16.0) gm/dL Neut % (Auto) 73.8 H (42.0-72.0) % Lymph % (Auto) 18.3 L (20-44) % Neut # (Auto) 7.70 H (1.7-7.0) K/uL Anion Gap 4 L (7-15) mEq/L C-Reactive Protein < 0.5 L (0.5-1.0) mg/dL Amylase 1712 H 943 H (18-89) U/L Lipase 05790 H 4304 H (23-300) U/L Diabetes panel 12/19/23 12/20/23 Range/Units 20:10 06:15 Sodium 140 139 (135-149) mmol/L Potassium 4.1 3.9 (3.6-5.1) mmol/L Chloride 105 108 (96-114) mmol/L Carbon Dioxide 26 27 (20-32) mmol/L BUN 13 9 (7-30) mg/dL Creatinine 0.6 0.6 (0.5-1.5) mg/dL Glucose 107 100 (60-115) mg/dL Calcium 9.6 8.6 (8.4-10.6) mg/dL AST 30 21 (12-35) U/L ALT 23 18 (4-35) U/L Alkaline Phosphatase 82 71 (40-150) U/L Total Protein 7.4 6.0 (6.0-8.3) g/dL Albumin 4.7 3.7 (3.3-5.0) g/dL Calcium panel 12/19/23 12/20/23 Range/Units 20:10 06:15 Calcium 9.6 8.6 (8.4-10.6) mg/dL Albumin 4.7 3.7 (3.3-5.0) g/dL Pituitary panel 12/19/23 12/20/23 Range/Units 20:10 06:15 Sodium 140 139 (135-149) mmol/L Potassium 4.1 3.9 (3.6-5.1) mmol/L Chloride 105 108 (96-114) mmol/L Carbon Dioxide 26 27 (20-32) mmol/L BUN 13 9 (7-30) mg/dL Creatinine 0.6 0.6 (0.5-1.5) mg/dL Glucose 107 100 (60-115) mg/dL Calcium 9.6 8.6 (8.4-10.6) mg/dL Adrenal panel 12/19/23 12/20/23 Range/Units 20:10 06:15 Sodium 140 139 (135-149) mmol/L Potassium 4.1 3.9 (3.6-5.1) mmol/L Chloride 105 108 (96-114) mmol/L Carbon Dioxide 26 27 (20-32) mmol/L BUN 13 9 (7-30) mg/dL Creatinine 0.6 0.6 (0.5-1.5) mg/dL Glucose 107 100 (60-115) mg/dL Calcium 9.6 8.6 (8.4-10.6) mg/dL Total Bilirubin 0.4 0.5 (0.1-1.5) mg/dL AST 30 21 (12-35) U/L ALT 23 18 (4-35) U/L Alkaline Phosphatase 82 71 (40-150) U/L Total Protein 7.4 6.0 (6.0-8.3) g/dL Albumin 4.7 3.7 (3.3-5.0) g/dL All other labs normal. Progress Note:A&P Assessment and plan (1) Acute pancreatitis: Status: Acute Plan 58-year-old female presents with a second episode of pancreatitis of unknown etiology. I discussed with the patient and her her laboratory and imaging findings. Patient's lipase is improving. I discussed with the patient that her ultrasound results done in the morning are still pending. However, on my review I do not see cholelithiasis or sludge. Her picture is also unusual because the inflammation is not near the head of the pancreas but near the tail. Both CTs for have similar inflammatory pattern. I recommended to proceed with MRCP to evaluate her pancreatic duct further. At this time I would continue with NPO and fluids.
--- NOTE | 2023-12-20 11:33 | CRLHL7_ITS ---
For Patients: As a result of the Cures Act, medical imaging exams and procedure reports are released immediately into your electronic medical record. You may view this report before your referring provider. If you have questions, please contact your health care provider. Indication: Pancreatitis. Technique: Multisequence multiplanar MRI of the abdomen without IV contrast. Comparison: CT abdomen/pelvis dated 12/19/2023. Findings: Liver: Mild diffuse hepatic steatosis. Bile ducts: No intrahepatic or extrahepatic biliary duct dilation. Gallbladder: Punctate gallstones towards the gallbladder neck. No secondary signs of acute cholecystitis. Pancreas: Again seen are moderate inflammatory changes and edema abutting the pancreatic tail, consistent with acute pancreatitis. Limited evaluation of the parenchyma secondary to unenhanced study. No pancreatic duct dilation. No organized fluid collections. Spleen: Unremarkable. Adrenals: Unremarkable. Kidneys: No hydronephrosis bilaterally. Retroperitoneum: No lymphadenopathy. Visualized Bowel and mesentery: Visualized bowel is nondilated. Vessels: Unremarkable for unenhanced study. Abdominal wall: No acute abdominal wall abnormality. Bones: No suspicious/aggressive focal osseous lesion. Impression: 1. Stable moderate inflammatory changes and edema abutting the pancreatic tail, consistent with acute pancreatitis. No organized fluid collections. No pancreatic duct dilation. 2. Punctate gallstones. No secondary signs of acute cholecystitis. 3. No intrahepatic or extrahepatic biliary duct dilation. No choledocholithiasis identified. Dictated by Aretha Farfan MD @ 12/20/2023 4:02:25 PM (Electronically Signed)
--- NOTE | 2023-12-20 11:33 | P.IMPN_ITS ---
Progress Note: A&P Assessment and plan (1) Acute pancreatitis: Problem details: - Acute, recurrent, first episode 1 month ago, idiopathic - interstitial edematous pancreatitis without loculated fluid collections on imaging - lipase 35230 --> 4304 - no acute abnormalities per initial ultrasound read, MRCP ordered 12/19 - general surgery (Dr. Elder) also following - ice chips, no desire to advance diet Status: Acute Plan - per above Subjective Date Seen: 12/20/23 Interval history: Oly was admitted last night for pancreatitis. This is her second episode in one month (first episode presumed to be idiopathic, workup reassuring during stay, no ETOH). This morning she feels a little better, continues to have anorexia. No ductal dilatation on abdominal ultrasound or acute gallbladder abnormalities per initial read, MRCP has been ordered to further evaluate today. Dr. Elder of General Surgery following. Exam Narrative: Exam Narrative: GEN: Alert and oriented, sitting comfortably in bed HEENT: EOMIs bilaterally, no scleral icterus CV: RRR, No concerning murmurs R: LCTA bilaterally without concerning wheezing, rales, or rhonchi Ab: Mild distention, + ttp, hypoactive bowel sounds Ext: wwp, no concerning edema Skin: No concerning skin lesions or rashes on exposed skin Neuro: Nonfocal Psych: Appropriate Const: Vital Signs, click to edit/add: Vital Signs - 24 hr 12/19/23 19:16 12/19/23 21:07 12/19/23 21:48 Temperature 98.4 F Pulse Rate [Pulse Oximeter] 70 64 Respiratory Rate 16 16 Blood Pressure [Ri ght Arm] Blood Pressure [Ri ght Upper Arm] 160/75 H 131/73 Pulse Oximetry 96 98 99 Oxygen Delivery Me thod Room Air Room Air 12/20/23 00:37 12/20/23 04:13 12/20/23 07:45 Temperature 98.2 F 98.7 F 97.8 F Pulse Rate [Pulse Oximeter] 72 81 90 Respiratory Rate 16 16 18 Blood Pressure [Ri ght Arm] 127/75 121/66 128/64 Blood Pressure [Ri ght Upper Arm] Pulse Oximetry 99 98 95 Oxygen Delivery Me thod Room Air Room Air Room Air 12/20/23 08:50 Temperature Pulse Rate [Pulse Oximeter] 90 Respiratory Rate 18 Blood Pressure [Ri ght Arm] Blood Pressure [Ri ght Upper Arm] Pulse Oximetry Oxygen Delivery Me thod Labs Labs: Laboratory Results - last 24 hr 12/19/23 12/19/23 12/20/23 20:10 20:52 06:15 WBC 10.45 8.07 RBC 4.51 3.79 L Hgb 13.6 11.6 L Hct 41.2 35.2 MCV 91 93 MCH 30 31 MCHC 33 33 RDW Coeff of Rosemarie 12.5 Plt Count 212 161 Neut % (Auto) 73.8 H Lymph % (Auto) 18.3 L [place] % (Auto) 4.4 Eos % (Auto) 3.0 Baso % (Auto) 0.3 Neut # (Auto) 7.70 H Lymph # (Auto) 1.90 [place] # (Auto) 0.50 Eos # (Auto) 0.31 Baso # (Auto) 0.03 Abs Immat Gran (auto) 0.02 Imm/Tot Granulo (auto) 0.2 Sodium 140 139 Potassium 4.1 3.9 Chloride 105 108 Carbon Dioxide 26 27 Anion Gap 9 4 L BUN 13 9 Creatinine 0.6 0.6 Estimated Creat Clear 86.10 86.10 Estimated GFR 103 103 Glucose 107 100 Lactate 1.1 Calcium 9.6 8.6 Total Bilirubin 0.4 0.5 Direct Bilirubin 0.2 AST 30 21 ALT 23 18 Alkaline Phosphatase 82 71 C-Reactive Protein < 0.5 L Total Protein 7.4 6.0 Albumin 4.7 3.7 Amylase 1712 H 943 H Lipase 27017 H 4304 H Urine Color Yellow Urine Appearance Clear Urine pH 6.5 Ur Specific [place] 1.010 Urine Protein Negative Urine Glucose (UA) Negative Urine Ketones Negative Urine Blood Negative Urine Nitrite Negative Urine Bilirubin Negative Urine Urobilinogen 0.2 Ur Leukocyte Esterase Negative Urine RBC 0-2 Urine WBC 0-2 Ur Squamous Epith Cells None Urine Bacteria None
[2023-12-20] MEDS: LORazepam 2 MG/ML inj 0.5 MG IVP (13:39)
[2023-12-20] MEDS: SODIUM CHLORIDE 0.9 % (FLUSH) 10 ML SYRINGE 5 ML IVF (13:40)
[2023-12-20] MEDS: 0.9 % SODIUM CHLORIDE 1000 ml 1,000 ML 75 ML IV ×2 (16:59→23:11)
--- NOTE | 2023-12-20 18:35 | PC.NURSE ---
End of Shift: Patient pleasant and cooperative, A&O. VSS, slight temperature this shift, Tmax 99.8. Patient reports pain in her abdomen and a headache this shift, denied any medication. Abdominal ultrasound and MRI completed this shift. Independent in room. NPO.
[2023-12-20] MEDS: ACETAMINOPHEN 325 MG TABLET 975 MG PO (19:43)
[2023-12-20] MEDS: ENOXAPARIN 40 MG/0.4 ML INJ SUBCUT (23:12)
[2023-12-21] VITALS (16 sets, daily range): BP systolic 96–138; BP diastolic 54–79; PULSE 75–89; RESP 16–18; TEMP 36.1–37.3; O2SAT 95–99
--- NOTE | 2023-12-21 05:28 | PC.NURSE ---
Shift note: Pt pleasant, alert and oriented. Continue to complain of upper quadrants abdominal pain and tenderness but has seen an improvement from yesterday. Pt has refused oral intake. Iv N/S continue to infuse at 75ml/hr. At 1930, pt had temperature of 100.8. Tylenol given which dropped the temperature to 98.6. Treatment given and charted.
[2023-12-21 07:03] LABS: Basophils Absolute Auto 0.01 K/uL (0.00-0.30); Basophils Percent Auto 0.1 % (0.0-3.0); Eosinophils Absolute Auto 0.23 K/uL (0.00-0.50); Eosinophils Percent Auto 3.1 % (0.0-7.0); Hemoglobin* 11.2 gm/dL (12.0-16.0); Immature Granulocytes Abs Auto 0.01 K/uL (0.00-0.30); Immature Granulocytes Pct Auto 0.1 %; Lymphocytes Percent Auto 18.7 % (20-44); Mean Corpuscular HGB Conc 33 gm/dL (32-36); Mean Corpuscular Hemoglobin 31 pg (26-34); Mean Corpuscular Volume 94 fL (80-100); Monocytes Percent Auto 5.8 % (0.0-11.0); Neutrophils Percent Auto 72.2 % (42.0-72.0); Platelet Count* 134 K/uL (140-440); RDW Coefficient of Variation % 12.9 % (11.5-15.5); Red Blood Count 3.62 m/uL (4.00-5.20); White Blood Count* 7.37 K/uL (4.50-11.00)
[2023-12-21 07:13] LABS: Slide Review Reflex No
[2023-12-21 07:29] LABS: Albumin* 3.5 g/dL (3.3-5.0); Chloride* 106 mmol/L (96-114); Sodium* 139 mmol/L (135-149)
[2023-12-21 07:30] LABS: Potassium* 3.5 mmol/L (3.6-5.1)
[2023-12-21 07:31] LABS: Creatinine* 0.6 mg/dL (0.5-1.5); Estimated Glomerular Filt Rate 103 ml/min
[2023-12-21 07:32] LABS: Alanine Aminotransferase* 15 U/L (4-35); Alkaline Phosphatase* 68 U/L (40-150); Anion Gap 6 mEq/L (7-15); Aspartate Amino Transferase* 19 U/L (12-35); Bilirubin Total* 1.5 mg/dL (0.1-1.5); Blood Urea Nitrogen* 11 mg/dL (7-30); Calcium* 8.6 mg/dL (8.4-10.6); Carbon Dioxide* 27 mmol/L (20-32); Glucose* 88 mg/dL (60-115); Lipase* 319 U/L (23-300)
--- NOTE | 2023-12-21 09:02 | PM.IMPN1 ---
Progress Note: A&P Assessment and plan (1) Acute pancreatitis: Problem details: - Acute, recurrent, first episode 1 month ago, idiopathic - interstitial edematous pancreatitis without loculated fluid collections on imaging - lipase [id number] --> [id number] - no acute abnormalities per initial ultrasound read, MRCP without CBD stones on 12/19 - cholecystectomy with Dr. Elder of general surgery 12/20, then likely home Status: Acute Subjective Date Seen: 12/21/23 Interval history: Oly was admitted on 12/18 for pancreatitis. This is her second episode in one month (first episode presumed to be idiopathic, workup reassuring during stay, no ETOH). Abdominal ultrasound reassuring, MRCP reveals stable pancreatitis, punctate gallstones, no dilated CBD. Today she is having a cholecystectomy with Dr. Elder of General Surgery. No concerns for hospitalist team. Exam Narrative: Exam Narrative: Sitting comfortably in bedside chair, no jaundice. Const: Vital Signs, click to edit/add: Vital Signs - 24 hr 12/20/23 11:00 12/20/23 15:36 12/20/23 15:38 Temperature 99.7 F H 99.8 F H Pulse Rate [Pulse Oximeter] 89 91 91 Respiratory Rate 18 18 18 Blood Pressure [Ri ght Arm] 140/75 H 126/67 Pulse Oximetry 97 95 Oxygen Delivery Me thod Room Air Room Air 12/20/23 19:00 12/20/23 23:00 12/20/23 23:00 Temperature 100.8 F H 98.6 F Pulse Rate [Pulse Oximeter] 89 75 75 Respiratory Rate 18 18 18 Blood Pressure [Ri ght Arm] 117/71 105/60 Pulse Oximetry 96 97 Oxygen Delivery Me thod Room Air Room Air 12/21/23 02:18 12/21/23 08:21 12/21/23 08:24 Temperature 98.3 F 98.8 F Pulse Rate [Pulse Oximeter] 75 76 76 Respiratory Rate 18 18 18 Blood Pressure [Ri ght Arm] 104/64 121/62 Pulse Oximetry 96 98 Oxygen Delivery Me thod Room Air Room Air Labs Labs: Laboratory Results - last 24 hr 12/21/23 06:35 WBC 7.37 RBC 3.62 L Hgb 11.2 L Hct 34.0 MCV 94 MCH 31 MCHC 33 RDW Coeff of Rosemarie 12.9 Plt Count 134 L Neut % (Auto) 72.2 H Lymph % (Auto) 18.7 L [place] % (Auto) 5.8 Eos % (Auto) 3.1 Baso % (Auto) 0.1 Neut # (Auto) 5.30 Lymph # (Auto) 1.40 [place] # (Auto) 0.40 Eos # (Auto) 0.23 Baso # (Auto) 0.01 Abs Immat Gran (auto) 0.01 Imm/Tot Granulo (auto) 0.1 Sodium 139 Potassium 3.5 L Chloride 106 Carbon Dioxide 27 Anion Gap 6 L BUN 11 Creatinine 0.6 Estimated Creat Clear 86.10 Estimated GFR 103 Glucose 88 Calcium 8.6 Total Bilirubin 1.5 AST 19 ALT 15 Alkaline Phosphatase 68 Total Protein 6.0 Albumin 3.5 Lipase 319 H
--- NOTE | 2023-12-21 09:05 | P.GSPN_ITS ---
Subjective Subjective Date Seen: 12/21/23 Interval history: Patient's pain has improved, she denies any nausea vomiting. She is passing gas. Exam Const: Vital Signs, click to edit/add: Vital Signs - 24 hr 12/20/23 11:00 12/20/23 15:36 12/20/23 15:38 Temperature 99.7 F H 99.8 F H Pulse Rate [Pulse Oximeter] 89 91 91 Respiratory Rate 18 18 18 Blood Pressure [Ri ght Arm] 140/75 H 126/67 Pulse Oximetry 97 95 Oxygen Delivery Me thod Room Air Room Air 12/20/23 19:00 12/20/23 23:00 12/20/23 23:00 Temperature 100.8 F H 98.6 F Pulse Rate [Pulse Oximeter] 89 75 75 Respiratory Rate 18 18 18 Blood Pressure [Ri ght Arm] 117/71 105/60 Pulse Oximetry 96 97 Oxygen Delivery Me thod Room Air Room Air 12/21/23 02:18 12/21/23 08:21 12/21/23 08:24 Temperature 98.3 F 98.8 F Pulse Rate [Pulse Oximeter] 75 76 76 Respiratory Rate 18 18 18 Blood Pressure [Ri ght Arm] 104/64 121/62 Pulse Oximetry 96 98 Oxygen Delivery Me thod Room Air Room Air Progress Note:A&P Assessment and plan (1) Acute pancreatitis: Status: Acute Assessment and Plan: 58-year-old female admitted to the hospital with acute pancreatitis. I discussed with the patient and her that her lipase is in 300s today. This is significantly improved from her previous lab. Patient's pain appropriately resolving. Her abdominal MRI showed small stones in the gallbl adder and no other abnormalities noted. They did comment on inflammation near the tail of the pancreas. There was no dilated pancreatic or common bile duct. We discussed the common causes of acute pancreatitis with the gallstone pancreatitis being one of the most common causes. Although, patient is inflammation is near the tail of the pancreas, I think it would be reasonable to proceed with laparoscopic cholecystectomy. Patient also has a small umbilical hernia and was wondering if that could be repaired to her surgery. The procedures were discussed with the patient in detail. The risks associated with the procedures including infection, bleeding, injury to intra-abdominal organs, injury to the common bile duct, and recurrence of umbilical hernia were all discussed with the patient. I discussed with the patient that I will repair her umbilical hernia with sutures only. Patient will be kept NPO and will proceed with surgery later today.
--- NOTE | 2023-12-21 12:07 | W.ANESCHARGE ---
Anesthesia Charges Start Date/Time Anesthesia Start Date: 12/21/23 Anesthesia Start Time: 12:35 Stop Date/Time Anesthesia Stop Date: 12/21/23 Anesthesia Stop Time: 13:57
[2023-12-21] MEDS: LACTATED RINGERS 1000 ML 1,000 ML 100 ML IV (12:35)
[2023-12-21] MEDS: CLINDAMYCIN 900 MG/50 ML-D5W IVPB (12:45)
[2023-12-21] MEDS: BUPIVACAINE 0.25% 30 ML 10 ML INJECTION (12:55)
--- NOTE | 2023-12-21 13:03 | SUR.OPER ---
PATIENT QUESTIONS ANSWERED SATISFACTORILY PREOPERATIVELY. PATIENT BROUGHT TO OR #2 PER MED/SURG BED. Patient positioned supine on OR #2 bed. The perioperative team supported arms bilaterally on arm boards. Final approval of positioning by surgeon.
--- NOTE | 2023-12-21 13:52 | P.GSOP_ITS ---
Operative Note Date of procedure: 12/21/23 Pre-op diagnosis: 1. Pancreatitis, most likely gallstone pancreatitis. 2. Umbilical hernia. Post-op diagnosis: Same Type of Procedure: 1. Laparoscopic cholecystectomy. 2. Open umbilical hernia repair without mesh. Indications: 58-year-old female was admitted to the hospital with gallstone pancreatitis. Upon her admission her lipase was over 12,000. This was patient's second episode of pancreatitis In the last few weeks. patient denied drinking alcohol. Her triglycerides were normal. On her workup she was found to have normal WBC. Her liver function tests were normal. An abdominal CT was obtained that showed inflammation near the tail of the pancreas. Patient then underwent a gallbladder ultrasound that did not show any evidence of stones or acute cholecystitis. Patient then underwent MRCP that showed inflammation near the tail of the pancreas as described on the CT scan. There were small gallstones noted in the gallbladder. No dilated common bile duct or pancreatic duct was seen on MRCP. On clinical exam patient had tenderness to palpation in epigastrium and left upper quadrant. She also had evidence of a small umbilical hernia that was reducible. Her pain was improving. Her lipase improved to just above normal. Given patient's history and her physical exam, the etiology of pancreatitis was not entirely certain but gallstone pancreatitis was on the top of the differential even though her inflammation on the CT scan was near the tail of the pancreas. The procedure was discussed in detail. The risks associated procedure including infection, bleeding, injury to intra- abdominal organs, and injury to the common bile duct were all discussed with the patient. Patient also desired umbilical hernia repair. We discussed the procedure of umbilical hernia repair and the fact that it will be repaired with sutures without mesh In combination with laparoscopic cholecystectomy. Patient is aware of a higher recurrence rate when repair is performed without mesh. Patient agreed to proceed. Procedure Description: After discussing the risks and benefits of the procedure, the patient signed informed consent.? The operative site was marked and the patient was brought to the operating room and placed on the operating table in supine position.? Care was taken to pad the patient's pressure points.?? The patient was then intubated by anesthesia.?? The operative site was then prepped and draped in the usual sterile fashion.? A time-out was then performed. A 5-mm laparoscopy port was placed in the left upper quadrant guided by a 5-mm laparoscope placed into a translucent trochar.~ Passage through the layers of the abdominal wall was visualized with the laparoscope.~ A pneumoperitoneum was established. A 0-degree 5-mm laparoscope was advanced into the abdomen. The abdomen was briefly surveyed, and no adhesions were noted. A 10-mm port were placed supraumbilically and two more 5 mm ports were placed on the right under direct visualization by laparoscope. The camera was then changed to 10 mm 30- degree scope and placed into the abdomen through the 10 mm port. The left upper quadrant port entrance was examined and no injury to intra-abdominal organs was identified. The gallbladder was identified, the fundus grasped and retracted cephalad. Omental adhesions to the gallbladder wall were taken down with hook cautery. The infundibulum was grasped and retracted laterally, exposing the peritoneum overlying the triangle of Calot. This was then divided and exposed in a blunt fashion and with hook cautery. Common bile duct was not identified but care was taken not to injure it. The cystic duct was clearly identified and bluntly dissected circumferentially. Cystic artery was Very small and was divided with hook cautery. The cystic duct was clearly going into the gallbladder. The cystic duct was then doubly ligated with surgical clips on the patient's side and singly clipped on the gallbladder side and divided. The gallbladder was dissected from the liver bed in retrograde fashion using hookcautery. The gallbladder was placed into an Endo-Catch bag and removed through the supraumbilical incision. Surgical site was examined for bleeding. No bleeding was seen in the surgical field. I then proceeded with an open umbilical hernia repair. The 11 mm port was removed and the abdomen was deflated. The anterior fascia of the umbilical defect was grasped with Diana clamps. Subcutaneous tissues were mobilized circumferentially to mobilize the anterior fascia from subcutaneous fat and skin. The fascial defect was approximately 1.5 cm. Hemostasis achieved with cautery. The fascial defect was then closed with interrupted or -0 Nurolon sutures. This closure was examined from the abdomen by insufflating the abdomen through right upper quadrant 5 mm port. No intra-abdominal organs were incarcerated in the closure. All laparoscopic instruments were then removed and abdomen was deflated. The umbilicus was then tacked to the fascia with interrupted 3-0 Vicryl sutures. The dermis was closed with interrupted 3-0 Vicryl sutures. The skin of all incisions was then closed with 4-0 monocryl and steristrips were applied. Instrument, sponge, and needle counts were correct at closure and at the conclusion of the case. The patient was transferred to PACU in stable condition. Findings: omentum adherent to the gallbladder suggestive of chronic inflammation. umbilical hernia repaired without mesh. Anesthesia: GETA Surgeon: Wily Elder MD Estimated blood loss (mL): 5 Specimen: Gallbladder Condition: stable Disposition: PACU
--- NOTE | 2023-12-21 13:56 | W.ANESCHARGE ---
Anesthesia Charges Start Date/Time Anesthesia Start Date: 12/21/23 Anesthesia Start Time: 12:35 Stop Date/Time Anesthesia Stop Date: 12/21/23 Anesthesia Stop Time: 13:57
[2023-12-21] MEDS: ONDANSETRON 2 MG/ML inj 4 MG IVP (14:08)
--- NOTE | 2023-12-21 14:12 | P.DS_ITS ---
DS: Providers Provider Date Seen: 12/21/23 Date of admission: 12/21/23 09:02 Primary care physician: Oly Rios MD Admitting Clinician: Sarah Kaur PA-C Consults: 12/19/23 23:41 Consult to Physician [CONS] Routine Comment: Consulting Provider: Wily Elder Has provider been notified: Yes Attending Physician on discharge: Sarah Kaur PA-C DS: Diagnosis Discharge Diagnosis (1) Acute pancreatitis: Status: Acute Problem details: DS: Summary Hospital Course Hospital Course: patient was admitted to the hospital with acute pancreatitis. This was patient's second episode in the last few weeks. Patient had lipase over 12,000 upon presentation. The lipase improved to just over 300 with conservative management. Patient was worked up with gallbladder ultrasound which did not show cholelithiasis. There was no evidence of acute cholecystitis and common bile duct was normal. Patient then underwent MRCP that showed small stones in the gallbladder with no dilation of common bile duct or pancreatic duct. Given patient's pancreatitis recurrence and her findings of small stones on MRCP, laparoscopic cholecystectomy was recommended. Patient also desire to repair her small umbilical hernia during the surgery. Patient underwent laparoscopic cholecystectomy and open umbilical hernia repair without mesh and was discharged home from same-day surgery. Time Spent with Patient Time attestation: Total time spent providing and/or coordinating discharge services: Exam Narrative: Exam Narrative: Abdomen is soft, laparoscopic incisions are covered with clean Steri-Strips. Const: Vital Signs, click to edit/add: Vital Signs - 24 hr 12/20/23 15:36 12/20/23 15:38 12/20/23 19:00 Temperature 99.8 F H 100.8 F H Pulse Rate Pulse Rate [Pulse Oximeter] 91 91 89 Respiratory Rate 18 18 18 Blood Pressure Blood Pressure [Ri ght Arm] 126/67 117/71 Pulse Oximetry 95 96 Oxygen Delivery Me thod Room Air Room Air 12/20/23 23:00 12/20/23 23:00 12/21/23 02:18 Temperature 98.6 F 98.3 F Pulse Rate Pulse Rate [Pulse Oximeter] 75 75 75 Respiratory Rate 18 18 18 Blood Pressure Blood Pressure [Ri ght Arm] 105/60 104/64 Pulse Oximetry 97 96 Oxygen Delivery Me thod Room Air Room Air 12/21/23 08:21 12/21/23 08:24 12/21/23 11:38 Temperature 98.8 F 99.2 F Pulse Rate Pulse Rate [Pulse Oximeter] 76 76 89 Respiratory Rate 18 18 18 Blood Pressure Blood Pressure [Ri ght Arm] 121/62 138/79 Pulse Oximetry 98 95 Oxygen Delivery Me thod Room Air Room Air 12/21/23 13:54 12/21/23 14:00 12/21/23 14:05 Temperature 97.3 F L Pulse Rate 89 80 82 Pulse Rate [Pulse Oximeter] Respiratory Rate 16 16 16 Blood Pressure 96/54 L 100/60 111/64 Blood Pressure [Ri ght Arm] Pulse Oximetry 96 96 97 Oxygen Delivery Me thod Room Air DS: Data Data Completed and Pending Labs on day of discharge: Labs from last 24 hours 12/21/23 06:35 WBC 7.37 RBC 3.62 L Hgb 11.2 L Hct 34.0 MCV 94 MCH 31 MCHC 33 RDW Coeff of Rosemarie 12.9 Plt Count 134 L Neut % (Auto) 72.2 H Lymph % (Auto) 18.7 L [place] % (Auto) 5.8 Eos % (Auto) 3.1 Baso % (Auto) 0.1 Neut # (Auto) 5.30 Lymph # (Auto) 1.40 [place] # (Auto) 0.40 Eos # (Auto) 0.23 Baso # (Auto) 0.01 Abs Immat Gran (auto) 0.01 Imm/Tot Granulo (auto) 0.1 Sodium 139 Potassium 3.5 L Chloride 106 Carbon Dioxide 27 Anion Gap 6 L BUN 11 Creatinine 0.6 Estimated Creat Clear 86.10 Estimated GFR 103 Glucose 88 Calcium 8.6 Total Bilirubin 1.5 AST 19 ALT 15 Alkaline Phosphatase 68 Total Protein 6.0 Albumin 3.5 Lipase 319 H Discharge Plan Discharge Disposition: Home, Self-Care Date of Admission: 12/21/23 09:02 Consulting Providers: Wily Elder Primary Care Provider: Oly Rios Condition: Improved Anticipated Discharge Date/Time: 12/21/23 13:50 Discharge Medications: New hydrocodone-acetaminophen 5-325 mg tablet 1 tab PO Q6H PRN (Reason: pain) Qty: 20 0RF Continued albuterol sulfate 90 mcg/actuation HFA aerosol inhaler 2 puff INHALATION Q4H PRN (Reason: wheezing) Discharge Orders: Discharge Order (Routine); Ordered 12/21/23 Ordered By: Wily Elder Patient Education: Deep Sedation (DC), General Anesthesia (DC), Ventral Hernia Repair (DC), Laparoscopic Cholecystectomy (DC), Post-Operative Instructions: Hernia Repair, Post-Operative Instructions: Laparoscopic Cholecystectomy Activity Level: No strenuous activity Activity Detail: No strenuous activity or lifting more than 15-20 lbs for 4-6 weeks. Take laxative such as MiraLax or senna daily for the first 7-10 days after surgery to prevent constipation. Discharge Diet: Regular Follow Up Appointments: Wily Elder MD [Staff Physician] - Forms: [facility] Info Instructions
--- NOTE | 2023-12-21 14:59 | SUR.PHASEII ---
Patient states she remains slightly nauseated. Coordinator Of Library Services offered essential oil patch, Reglan, or attempting ice chips or crackers. Patient declines all. States abdomen is sore, but tolerable. Ice pack in place. Denies any other needs at this time. Call light within reach and spouse at the bedside. VSS
== END 2023-12-21 16:31 | disposition home or self-care (01) | DRG 263 ==
LOC: ED 22:07 → MEDSURG 22:43
PROVIDERS: Surgery; Admitting Provider Physician Assistant; Emergency Provider Family Medicine; PCP Family Medicine; Visit Provider Physician Assistant
PROC: 0FT44ZZ Resection of Gallbladder, Percutaneous Endoscopic Approach (ICD-10-PCS; CPT 47562; principal; 2023-12-21 13:00)
PROC: 0FT44ZZ Resection of Gallbladder, Percutaneous Endoscopic Approach (ICD-10-PCS; 2023-12-21 13:00)
DX: K85.10 Biliary acute pancreatitis without necrosis or infection (principal); K42.9 Umbilical hernia without obstruction or gangrene; J45.20 Mild intermittent asthma, uncomplicated; E55.9 Vitamin D deficiency, unspecified
CPT/HCPCS: 00790; 36415; 74177; 74181; 76705; 80053; 81001; 82150; 82248; 83605; 83690; 85025; 85027; 86140; 88304; 94761; 99284; 99285; A9270; G0378; J0330; J0665; J0736; J1100; J1650; J2060; J2270; J2405; J2704; J3010; J3490; J7030; J7120; Q9967